=== PATIENT | male | born 1965 | race Caucasian/White ===

== ENCOUNTER 2022-09-28 10:57 | Inpatient (IN) ==
[2022-09-28] MEDS ORDERED: SODIUM CHLORIDE 0.9% 1000ML 1,000 ML IV ONE (11:19)
[2022-09-28] MEDS ORDERED: ONDANSETRON INJ 2 MG/ML 2 ML VIAL IV STA (11:19)
--- NOTE | 2022-09-28 11:57 | Emergency Department Note ---
Impression & Plan Abdominal pain, acute, right upper quadrant, Acute cholecystitis, Choledocholithiasis, Transaminitis, Serum total bilirubin elevated ED Provider Note HISTORY OF PRESENT ILLNESS: Patient is a 56-year-old male presenting with right upper quadrant abdominal pain, discolored urine and pruritus. Patient reports that he was trying to get an appointment with his primary care provider, but was referred to the emergency department instead. He reports that over the last week he has been having intermittent episodes of right upper quadrant abdominal pain. He has noted episodes in which his urine is so dark yellow it is almost brown. He reports that for the last few days he has been having diffuse itchiness and cannot stop scratching his skin. He reports nausea but no vomiting. Reports having diarrhea over the last few days. Reports he just does not feel like his normal self at this time. His not complaining of right upper quadrant pain at this time. Denies any history of abdominal surgeries. Denies any chest pain or shortness of breath. Denies any dysuria or hematuria. Denies any fevers ROS: as above PHYSICAL EXAM: Constitutional: Patient appears in no distress. HENT: Head: Normocephalic and atraumatic. Eyes: EOMI, PERRL Mouth/Throat: Mucous membranes moist. Neck: Trachea midline. Neck supple. Cardiovascular: RRR, No murmurs, rubs or gallops. Intact distal pulses. Pulmonary/Chest: No respiratory distress. Breath sounds clear and equal bilaterally. No wheezes or rales. Abdominal: Abdomen soft, no rebound or guarding. Right upper quadrant tenderness to palpation Musculoskeletal: No edema, tenderness or deformity noted. Skin: Warm and dry. No rash, erythema, pallor or cyanosis Psychiatric: Appropriate mood and affect for situation. Neurological: Alert and keenly responsive. CN II-XII grossly intact, moving all extremities equally and fully. MDM: - Vitals signs stable. - History obtained via patient. Patient presents with right upper quadrant abdominal pain, discolored urine and pruritus. Patient reports that he was refe rred to the ER by his PCP. He has been having intermittent episodes of right upper quadrant abdominal pain. He reports over the weekend he has had significantly dark urine that is almost brown in color. He reports for the last few days he had diffuse itchiness and cannot stop scratching his skin. Reports nausea but no vomiting. Has had diarrhea over the last few days. Denies any fevers at home. - Chronic conditions affecting care: GERD - Differential diagnoses include, but are not limited to: Biliary colic; cholangitis; cholecystitis; hepatitis; right lower lobe pneumonia; pulmonary embolism - Order placed for continuous cardiac monitoring. At this time, monitor showed rate of 70 bpm with normal sinus rhythm, per my interpretation. - External medical records reviewed. - Laboratory workup interpreted by myself showed normal WBC; normal lactate; slight hyponatremia (Na 134); elevated total bilirubin (6.4); transaminitis (AST 128; ALT 346); normal lipase - UA negative for infection. - CT abdomen/pelvis with IV contrast showed mild wall thickening of the gallbladder representing gallbladder contraction versus cholecystitis. Also noted to have prominence of the common bile duct with a radiodensity in the distal duct - MRCP showed cholelithiasis and choledocholithiasis with evidence of acute cholecystitis - Patient given IV zosyn, 4 mg IV zofran and 1L NS in ER. - Disucssed results with GI who recommended GI consult and plan for ERCP. - Discussion was had with social director about patient's case and need for admission - Hospitalist, Dr. Pagan, consulted for admission - [facility] ASSESSMENT AND PLAN: Diagnosis: RUQ abdominal pain; acute cholecystitis; choledocholithiasis; transaminitis; elevated total bilirubin Plan: admit Past Med/Surg History Medical History (Updated 09/28/22 @ 16:41 by Jocy Arzate MD) Adenomatous polyps hx GERD (gastroesophageal reflux disease) History of COVID-19 2019, fatigue>resolved. Hx of allergic rhinitis Right knee pain Surgical History History of arthroscopy of right knee Benjamin subtotal lateral meniscectomy, partial medial, chondroplasty History of colonoscopy History of esophagogastroduodenoscopy (EGD) History of foot surgery LEFT Family History Grandfather (Paternal) Prostate cancer Grandmother (Maternal) Diabetes Denies family history of Ovarian cancer Alzheimer disease Bipolar disorder Dementia Depression Heart disease Myocardial infarction Breast cancer Lung cancer COPD (chronic obstructive pulmonary disease) Colorectal cancer Hypertension Colonic polyp Stroke Asthma Social History Smoking Status: Never smoker Cigarettes Per Day: "just occasional"; Second Hand Exposure: No; Do You Dip or Chew Tobacco: Yes (advised); Hx Alcohol Use: Yes Alcohol type: beer Alcohol Intake Frequency: 2-3 x/Week Hx Substance Use: No Preferred Language: Citizen Of [place] Communication Ability: Effective Visual Impairment: No Limitations Hearing Ability: Normal Occupational Therapy Aide Required: No Beliefs That Will Affect Care: None marital status: Current Living Situation: Spouse Current Living Situation Comment: [employer] current occupational status: employed current occupation: INVENTORY ASSISTANT How many Children do You have: 1 Feels Safe at Home: Yes Childhood Exposure to Second-Hand Smoke: Yes Dental Care, Regularly: No Seatbelt Use: never Sunscreen Use: Yes (BEACH) Assistive Devices: Contacts Allergies Allergies Allergy/AdvReac Type Severity Reaction Status Date / Time No Known Allergies Allergy Verified 06/09/22 16:09 Home Meds Previous Rx's Medication Instructions Recorded azelastine 137 mcg (0.1 %) nasal 2 spray intranasal BID #90 mL 05/15/22 spray aerosol pantoprazole 40 mg tablet,delayed 40 mg PO QAM #90 tabs 05/15/22 release (Protonix) celecoxib 200 mg capsule (Celebrex) 200 mg PO DAILY #30 caps 06/09/22 mupirocin 2 % topical ointment 1 applic topical BID #22 grams 06/09/22 Results & Data (ED) Vital Signs Vital Signs - 24 hr 09/28/22 11:12 09/28/22 11:46 09/28/22 11:48 Temperature 36.6 C Temperature Source Temporal Artery Scan Pulse Rate 75 65 Pulse Rate [Apical] 69 Pulse Rhythm [Apical] Pulse Strength [Apical] Respiratory Rate 18 15 15 Respiratory Effort / Characteristics Non-Labored Spontaneous Respiratory Depth Normal Respiratory Pattern Regular Blood Pressure 158/113 H Blood Pressure [Left Arm] Blood Pressure Mean 128 Blood Pressure Mean [Left Arm] Blood Pressure Position [Left Arm] Pulse Oximetry 98 95 94 Oxygen Delivery Method Room Air Room Air Room Air Sepsis Recent Fever Within 48 Hours Yes Sepsis New/Unexplained Change in Mental Status No Sepsis Action Taken by Nursing No Action Required 09/28/22 12:41 09/28/22 13:25 09/28/22 15:16 Temperature 36.7 C Temperature Source Oral Pulse Rate 63 Pulse Rate [Apical] 66 62 Pulse Rhythm [Apical] Regular Pulse Strength [Apical] Normal Respiratory Rate 18 16 Respiratory Effort / Characteristics Non-Labored Spontaneous Respiratory Depth Normal Respiratory Pattern Regular Blood Pressure Blood Pressure [Left Arm] 139/87 Blood Pressure Mean Blood Pressure Mean [Left Arm] 104 Blood Pressure Position [Left Arm] Semi-fowlers Pulse Oximetry 96 94 Oxygen Delivery Method Room Air Room Air Sepsis Recent Fever Within 48 Hours Sepsis New/Unexplained Change in Mental Status Sepsis Action Taken by Nursing 09/28/22 16:37 Temperature Temperature Source Pulse Rate 65 Pulse Rate [Apical] Pulse Rhythm [Apical] Pulse Strength [Apical] Respiratory Rate Respiratory Effort / Characteristics Respiratory Depth Respiratory Pattern Blood Pressure Blood Pressure [Left Arm] Blood Pressure Mean Blood Pressure Mean [Left Arm] Blood Pressure Position [Left Arm] Pulse Oximetry Oxygen Delivery Method Sepsis Recent Fever Within 48 Hours Sepsis New/Unexplained Change in Mental Status Sepsis Action Taken by Nursing Laboratory Data 09/28/22 11:44 09/28/22 11:44 Lab Results 09/28/22 09/28/22 09/28/22 Range/Units 11:44 11:44 12:19 WBC 7.31 (4.8-10.8) K/ul RBC 5.28 (4.70-6.10) M/uL Hgb 16.3 (14.0-18.0) g/dl Hct 45.4 (42.0-52.0) % MCV 86.0 (80.0-100.0) fL MCH 30.9 (25.0-34.0) pg MCHC 35.9 (32.0-36.0) g/dL RDW Std Deviation 43.0 (36.4-46.3) fL RDW Coeff of Mayela 13.8 (11.5-14.5) % Plt Count 238 (130-400) K/uL MPV 9.0 L (9.4-12.4) fL Immature Gran % (Auto) 1.0 % Neut % (Auto) 64.1 % Lymph % (Auto) 19.6 % Emanuel % (Auto) 7.8 % Eos % (Auto) 6.3 % Baso % (Auto) 1.2 % Neut # (Auto) 4.69 (1.40-6.50) K/uL Lymph # (Auto) 1.43 (1.2-3.4) K/uL Emanuel # (Auto) 0.57 (0.11-0.59) K/uL Eos # (Auto) 0.46 (0-0.50) K/uL Baso # (Auto) 0.09 (0-0.2) K/uL Immature Gran # (Auto) 0.07 (0.01-0.20) K/uL Sodium 134 L (136-145) mmol/L Potassium 4.2 (3.5-5.1) mmol/L Chloride 102 (98-107) mmol/L Carbon Dioxide 23 (21-32) mmol/L Anion Gap 9 (3-11) BUN 11 (6-23) mg/dl Creatinine 1.05 (0.6-1.4) mg/dl Est Cr Clr Drug Dosing 82.1 ml/min Est GFR ( Amer) 92.2 ml/min Est GFR (Non-Af Amer) 79.5 ml/min BUN/Creatinine Ratio 10.5 (10-20) Glucose 113 H (70-99(Fasting)) mg/dl Lactate 1.1 (0.4-2.0) mmol/L Calcium 9.6 (8.6-10.3) mg/dl Total Bilirubin 6.4 H (0.2-1.0) mg/dl AST 128 H (13-39) U/L ALT 346 H (7-52) U/L Alkaline Phosphatase 289 H (34-104) U/L Total Protein 7.6 (6.0-8.3) gm/dl Albumin 4.4 (3.4-5.0) gm/dl Globulin 3.2 (2.5-4.0) gm/dl Albumin/Globulin Ratio 1.4 (0.9-2) Lipase 33 (11-82) U/L Urine Color Urine Appearance (Clear) Urine pH (4.5-7.5) Ur Specific Bude (1.000-1.030) Urine Protein (Negative) Urine Glucose (UA) (Negative) Urine Ketones (Negative) Urine Blood (Negative) Urine Nitrite (Negative) Urine Bilirubin (Negative) Urine Urobilinogen (Negative) Ur Leukocyte Esterase (Negative) 09/28/22 Range/Units Unknown WBC (4.8-10.8) K/ul RBC (4.70-6.10) M/uL Hgb (14.0-18.0) g/dl Hct (42.0-52.0) % MCV (80.0-100.0) fL MCH (25.0-34.0) pg MCHC (32.0-36.0) g/dL RDW Std Deviation (36.4-46.3) fL RDW Coeff of Mayela (11.5-14.5) % Plt Count (130-400) K/uL MPV (9.4-12.4) fL Immature Gran % (Auto) % Neut % (Auto) % Lymph % (Auto) % Emanuel % (Auto) % Eos % (Auto) % Baso % (Auto) % Neut # (Auto) (1.40-6.50) K/uL Lymph # (Auto) (1.2-3.4) K/uL Emanuel # (Auto) (0.11-0.59) K/uL Eos # (Auto) (0-0.50) K/uL Baso # (Auto) (0-0.2) K/uL Immature Gran # (Auto) (0.01-0.20) K/uL Sodium (136-145) mmol/L Potassium (3.5-5.1) mmol/L Chloride (98-107) mmol/L Carbon Dioxide (21-32) mmol/L Anion Gap (3-11) BUN (6-23) mg/dl Creatinine (0.6-1.4) mg/dl Est Cr Clr Drug Dosing ml/min Est GFR ( Amer) ml/min Est GFR (Non-Af Amer) ml/min BUN/Creatinine Ratio (10-20) Glucose (70-99(Fasting)) mg/dl Lactate (0.4-2.0) mmol/L Calcium (8.6-10.3) mg/dl Total Bilirubin (0.2-1.0) mg/dl AST (13-39) U/L ALT (7-52) U/L Alkaline Phosphatase (34-104) U/L Total Protein (6.0-8.3) gm/dl Albumin (3.4-5.0) gm/dl Globulin (2.5-4.0) gm/dl Albumin/Globulin Ratio (0.9-2) Lipase (11-82) U/L Urine Color Dark Yellow Urine Appearance Clear (Clear) Urine pH 5.5 (4.5-7.5) Ur Specific Bude 1.008 (1.000-1.030) Urine Protein Negative (Negative) Urine Glucose (UA) Negative (Negative) Urine Ketones Negative (Negative) Urine Blood Negative (Negative) Urine Nitrite Negative (Negative) Urine Bilirubin 1+ H (Negative) Urine Urobilinogen Negative (Negative) Ur Leukocyte Esterase Negative (Negative) Administered Medications Discontinued Medications Sodium Chloride (Nss 1000ml) 1,000 mls @ 999 mls/hr IV .Q1H1M ONE Stop: 09/28/22 12:19 Last Infusion: 09/28/22 13:25 Dose: 0 mls/hr Documented By: Admin: 09/28/22 11:46 Dose: 999 mls/hr Documented By: KV Piperacillin Sod/Tazobactam Sod (Zosyn) 4.5 gm in 120 mls @ 240 mls/hr IV NOW ONE Stop: 09/28/22 13:47 Last Infusion: 09/28/22 15:53 Dose: 0 mls/hr Documented By: Admin: 09/28/22 13:25 Dose: 240 mls/hr Documented By: KV Ioversol (Optiray 350 500ml) 90 ml IV ONCE ONE Stop: 09/28/22 13:00 Last Admin: 09/28/22 12:59 Dose: 90 ml Documented By: KSF Ondansetron HCl (Ondansetron Inj 2 Mg/Ml 2 Ml Vial) 4 mg IV NOW STA Stop: 09/28/22 11:20 Last Admin: 09/28/22 11:46 Dose: 4 mg Documented By: KV Imaging Data Radiologist's Impression: Abdomen/Pelvis CT 09/28/22 12:25 CT abd pelvis IV con only CLINICAL HISTORY: RUQ abdominal pain; jaundice TECHNIQUE: Helical axial images of the abdomen and pelvis were obtained and displayed. Automated dose lowering techniques and/or adjustment according to patient size were utilized for this exam. This exam was performed with intr avenous contrast. CT DOSE: 1510.87 mGy.cm COMPARISON: None available at the time of this dictation. FINDINGS: Lower chest: Bibasilar atelectasis versus scarring is seen. Liver: Unremarkable. No focal lesions are seen. Gallbladder and biliary tree: The gallbladder is diminutive in size and a layering stone is seen. Gallbladder wall measures up to 0.3 cm in diameter. No significant pericholecystic fluid is noted. Intra and extrahepatic bile biliary ductal dilation is seen. A stone is noted in the distal common bile duct. Pancreas: Unremarkable, no focal lesions. Spleen: Unremarkable. Adrenals: Unremarkable. Kidneys and ureters: Unremarkable. Bladder: Limited evaluation due to underdistention. Reproductive organs: Unremarkable. Bowel: Numerous diverticula are seen in the large bowel. The appendix is unremarkable. Lymph nodes Retroperitoneal: Subcentimeter lymph nodes are noted. Pelvic: Unremarkable. Mesenteric: Unremarkable. Peritoneum: Normal. Vessels: Unremarkable. Abdominal wall: Unremarkable. Bones: Degenerative changes in the visualized spine. IMPRESSION: Diminutive gallbladder with mild wall thickening may represent gallbladder contraction but can also be seen in chronic cholecystitis. There is prominence of the common bile duct with a radiodensity in the distal duct. Choledocholithiasis cannot be excluded. ACT 112: Negative or not required by law. Electronically signed by: Efraín Cruz M.D. 09/28/2022 1:14 PM Cholangiopancreatography MRI 09/28/22 13:50 MRCP CLINICAL HISTORY: Right upper quadrant abdominal pain. Nausea and vomiting. COMPARISON STUDY: Abdominal CT dated 09/28/2022. TECHNIQUE: Abdominal MRCP is performed utilizing various T2-weighted sequences in the axial and coronal planes. IV contrast was not administered for this examination. Diffusion-weighted imaging was utilized. 3-D reformats are created and assessed. FINDINGS: The gallbladder is partially distended, and there are several gallstones. The gallbladder wall is thickened with pericholecystic inflammation. Findings are consistent with acute cholecystitis. The common bile duct is dilated, measuring up to 8mm diameter. There is infiltration around the proximal common bile duct a nd intrahepatic hilum. There are at least 2 gallstones within the mid to distal common bile duct measuring up to 6 mm. There may also be a tiny stone at the ampulla. There is mild intrahepatic biliary ductal dilatation. The pancreatic duct is normal in caliber. The unenhanced liver, spleen, adrenal glands, and pancreas are grossly unremarkable. The kidneys are normal in size and without hydronephrosis. The abdominal aorta is normal in course and caliber. There is no evidence of bowel obstruction. No abdominal ascites is seen. There is no pleural effusion. There is no evidence of destructive bony lesion. IMPRESSION: 1. Cholelithiasis and choledocholithiasis with evidence of acute cholecystitis. 2. There is mild intrahepatic biliary ductal dilatation. Inflammation around the proximal common bile duct likely represents cholangitis. 3. Additional findings as above. Electronically signed by: Tee Emerson M.D. 09/28/2022 3:18 PM Discharge Plan Visit Data Chief Complaint: Urinary Symptoms Stated Complaint: BROWN URINE,NAUSEA,ITCHY,DIARRHEA,ABD PAIN ED Provider: Jocy Arzate Discharge Problem: Abdominal pain, acute, right upper quadrant, Acute cholecystitis, Choledoc holithiasis, Transaminitis, Serum total bilirubin elevated Forms Stand Alone Forms: [facility] Prescriptions Prescriptions: No Action pantoprazole [Protonix] 40 mg tablet,delayed release (DR/EC) 40 mg PO QAM Qty: 90 3RF azelastine 137 mcg (0.1 %) aerosol,spray 2 spray intranasal BID Qty: 90 5RF Rx Instructions: administer into each nostril mupirocin 2 % ointment 1 applic topical BID Qty: 22 5RF celecoxib [Celebrex] 200 mg capsule 200 mg PO DAILY Qty: 30 0RF Referrals Referrals: Montana Edmonds MD [Primary Care Provider] -
[2022-09-28 12:10] LABS: Basophils # (auto) 0.09 K/uL (0-0.2); Basophils % (auto) 1.2 %; Eosinophils # (auto) 0.46 K/uL (0-0.50); Eosinophils % (auto) 6.3 %; Hematocrit (blood only) 45.4 % (42.0-52.0); Hemoglobin 16.3 g/dl (14.0-18.0); Immature Granulocytes # (auto) 0.07 K/uL (0.01-0.20); Lymphocytes # (auto) 1.43 K/uL (1.2-3.4); Lymphocytes % (auto) 19.6 %; Mean Corpuscular Hemoglobin 30.9 pg (25.0-34.0); Mean Corpuscular Hgb Conc 35.9 g/dL (32.0-36.0); Monocytes # (auto) 0.57 K/uL (0.11-0.59); Monocytes % (auto) 7.8 %; Neutrophils # (auto) 4.69 K/uL (1.40-6.50); Neutrophils % (auto) 64.1 %; Platelet Count 238 K/uL (130-400); RDW Coefficient of Variation 13.8 % (11.5-14.5); Red Blood Count 5.28 M/uL (4.70-6.10); White Blood Count 7.31 K/ul (4.8-10.8)
[2022-09-28 12:24] LABS: Albumin Globulin Ratio 1.4 (0.9-2); Albumin Level 4.4 gm/dl (3.4-5.0); BUN Creatinine Ratio 10.5 (10-20); Bilirubin,Total 6.4 mg/dl (0.2-1.0); Calcium 9.6 mg/dl (8.6-10.3); Creatinine Clr Calc Pharmacy 82.1 ml/min; Est GFR (African American) 92.2 ml/min; Est GFR (Non-African American) 79.5 ml/min; Globulin 3.2 gm/dl (2.5-4.0); Potassium 4.2 mmol/L (3.5-5.1); Total Protein 7.6 gm/dl (6.0-8.3)
[2022-09-28] MEDS ORDERED: OPTIRAY 350 500ml IV ONE (12:59)
--- NOTE | 2022-09-28 13:15 | CT Scan Report ---
CT abd pelvis IV con only CLINICAL HISTORY: RUQ abdominal pain; jaundice TECHNIQUE: Helical axial images of the abdomen and pelvis were obtained and displayed. Automated dose lowering techniques and/or adjustment according to patient size were utilized for this exam. This e xam was performed with intravenous contrast. CT DOSE: 1510.87 mGy.cm COMPARISON: None available at the time of this dictation. FINDINGS: Lower chest: Bibasilar atelectasis versus scarring is seen. Liver: Unremarkable. No focal lesions are seen. Gallbladder and biliary tree: The gallbladder is diminutive in size and a layering stone is seen. Gal lbladder wall measures up to 0.3 cm in diameter. No significant pericholecystic fluid is noted. Intra and extrahepatic bile biliary ductal dilation is seen. A stone is noted in the distal common bile du ct. Pancreas: Unremarkable, no focal lesions. Spleen: Unremarkable. Adrenals: Unremarkable. Kidneys and ureters: Unremarkable. Bladder: Limited evaluation due to underdistention. Reproductive organs: Unremarkable. Bowel: Numerous diverticula are seen in the large bowel. The appendix is unremarkable. Lymph nodes Retroperitoneal: Subcentimeter lymph nodes are noted. Pelvic: Unremarkable. Mesenteric: Unremarkable. Peritoneum: Normal. Vessels: Unremarkable. Abdominal wall: Unremarkable. Bones: Degenerative changes in the visualized spine. IMPRESSION: Diminutive gallbladder with mild wall thickening may represent gallbladder contraction but can also b e seen in chronic cholecystitis. There is prominence of the common bile duct with a radiodensity in t he distal duct. Choledocholithiasis cannot be excluded. ACT 112: Negative or not required by law. Electronically signed by: Efraín Cruz M.D. 09/28/2022 1:14 PM
[2022-09-28] MEDS ORDERED: PIPERACILLIN/TAZOBACTAM 4.5 GM/120 ML BAG IV ONE (13:18)
[2022-09-28 13:43] LABS: Appearance Urine Clear (Clear); Blood Urine Negative (Negative); Color Urine Dark Yellow; Glucose Urine UA Negative (Negative); Ketones Urine Negative (Negative); Leukocyte Esterase Urine Negative (Negative); Nitrite Urine Negative (Negative); Protein Urine Negative (Negative); Specific Gravity Urine 1.008 (1.000-1.030); Urobilinogen Urine Negative (Negative); pH Urine 5.5 (4.5-7.5)
[2022-09-28 13:47] LABS: Bilirubin Urine 1+ (Negative)
--- NOTE | 2022-09-28 15:19 | Magnetic Resonance Report ---
MRCP CLINICAL HISTORY: Right upper quadrant abdominal pain. Nausea and vomiting. COMPARISON STUDY: Abdominal CT dated 09/28/2022. TECHNIQUE: Abdominal MRCP is performed utilizing various T2-weighted sequences in the axial and coron al planes. IV contrast was not administered for this examination. Diffusion-weighted imaging was util ized. 3-D reformats are created and assessed. FINDINGS: The gallbladder is partially distended, and there are several gallstones. The gallbladder wall is thi ckened with pericholecystic inflammation. Findings are consistent with acute cholecystitis. The commo n bile duct is dilated, measuring up to 8mm diameter. There is infiltration around the proximal commo n bile duct and intrahepatic hilum. There are at least 2 gallstones within the mid to distal common b ile duct measuring up to 6 mm. There may also be a tiny stone at the ampulla. There is mild intrahepa tic biliary ductal dilatation. The pancreatic duct is normal in caliber. The unenhanced liver, spleen, adrenal glands, and pancreas are grossly unremarkable. The kidneys are normal in size and without hydronephrosis. The abdominal aorta is normal in course and caliber. There is no evidence of bowel obstruction. No abdominal ascites is seen. There is no pleural effusion. The re is no evidence of destructive bony lesion. IMPRESSION: 1. Cholelithiasis and choledocholithiasis with evidence of acute cholecystitis. 2. There is mild intrahepatic biliary ductal dilatation. Inflammation around the proximal common bile duct likely represents cholangitis. 3. Additional findings as above. Electronically signed by: Tee Emerson M.D. 09/28/2022 3:18 PM
--- NOTE | 2022-09-28 16:35 | History & Physical Report ---
Date of Service September 28, 2022 Assessment & Plan (1) Choledocholithiasis with acute cholecystitis with obstruction: Plan: Lipase WNL NPO, LR @ 125ml/hr Switch antibiotics to ceftriaxone + metronidazole Consult gastroenterology for ERCP Consult general surgery for cholecystectomy (2) Gastroesophageal reflux disease without esophagitis: Plan: Continue pantoprazole 40mg IV/PO daily Plan VTE Prophylaxis - Lovenox 40mg SQ daily Diet - NPO Disposition - admit to med/surg Admission and Anticipated Discharge Date Admission Date: September 28, 2022 History of Present Illness Chief Complaint: Dark urine, pruritis, abdominal pain, nausea, chills Primary Care Provider: Montana Edmonds MD Tod Estrella is a 56 year old male who presents to the ER with 1 week of dark urine, right upper quadrant pain, nausea, pruritus and chills. He reports intermittent right upper quadrant abdominal pain since August which he initially put down to his reflux due to association with eating. On occasion however it could last for an entire day. Not getting more frequent or severe but also not getting better. Taking intermittent Aleve for this which would help. Then for the last week he has noticed dark urine and reduced urination. Last 5 day his skin has become itchy all over. Associated nausea but no vomiting. No change in bowel movements. This morning he started having chills but no objective fever. Today he called his PCP office on insistence from his who advised him to come to the ER. He drinks alcohol usually on Fridays and Saturdays 6-8 beers at a time. No alcohol since Wednesday as he had 3 beers then which made him feel sick. Allergies Allergy/AdvReac Type Severity Reaction Status Date / Time No Known Allergies Allergy Verified 06/09/22 16:09 Home Medications Medication Instructions Recorded Confirmed Type azelastine 137 mcg (0.1 %) nasal 2 spray intranasal BID #90 mL 05/15/22 09/28/22 Rx spray aerosol pantoprazole 40 mg tablet,delayed 40 mg PO QAM #90 tabs 05/15/22 09/28/22 Rx release (Protonix) mupirocin 2 % topical ointment 1 applic topical BID PRN Other 09/28/22 09/28/22 History Past Med/Surg History Medical History (Updated 09/28/22 @ 16:41 by Jocy Arzate MD) Adenomatous polyps hx GERD (gastroesophageal reflux disease) History of COVID-19 2020, fatigue>resolved. Hx of allergic rhinitis Right knee pain Surgical History History of arthroscopy of right knee Benjamin subtotal lateral meniscectomy, partial medial, chondroplasty History of colonoscopy History of esophagogastroduodenoscopy (EGD) History of foot surgery LEFT Family History Grandfather (Paternal) Prostate cancer Grandmother (Maternal) Diabetes Denies family history of Ovarian cancer Alzheimer disease Bipolar disorder Dementia Depression Heart disease Myocardial infarction Breast cancer Lung cancer COPD (chronic obstructive pulmonary disease) Colorectal cancer Hypertension Colonic polyp Stroke Asthma Social History Smoking Status: Never smoker Cigarettes Per Day: "just occasional"; Second Hand Exposure: No; Do You Dip or Chew Tobacco: Yes (1 can a day); Hx Alcohol Use: Yes Alcohol type: beer Alcohol Intake Frequency: 2-3 x/Week Hx Substance Use: No Preferred Language: Belarusian Communication Ability: Effective Visual Impairment: No Limitations Hearing Ability: Normal Bank Guard Required: No Beliefs That Will Affect Care: None marital status: Current Living Situation: Spouse Current Living Situation Comment: [facility] [employer] [facility] current occupational status: employed current occupation: A[employer]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 How many Children do You have: 1 Other Information That Helps Us Care for You: No Feels Safe at Home: Yes Safety Concerns: Feels Safe At This Time Childhood Exposure to Second-Hand Smoke: Yes Dental Care, Regularly: No Seatbelt Use: never Sunscreen Use: Yes (BEACH) Assistive Devices: None Review of Systems Review of Systems: All systems reviewed & are unremarkable except as noted in HPI & below Physical Exam Constitutional: WD/WN, vitals as above Eyes: sclerae not anicteric and normal pupil size ENMT: external ear and nose normal, oropharynx normal Neck: trachea midline, no thyromegaly Respiratory: normal respiratory effort, lungs clear to auscultation Cardiovascular: RRR, no murmur, no edema Gastrointestinal (Abdomen): Inspection/Auscultation: abdomen normal to inspection; abdomen not distended Percussion/Palpation: + abdomen tender (RUQ) and abdomen soft; no guarding and abdomen not rigid Musculoskeletal: no cyanosis or clubbing, extremities motor strength 5/5 Skin: + jaundice Neurologic: moves all extremities and awake; not confused Psychiatric: A+Ox3, euthymic affect Results & Data Results & Data Vital Signs (Past 12 Hours) Vital Signs Temp Pulse Pulse Resp BP BP Pulse Ox 09/28/22 15:16 36.7 C 62 16 139/87 94 09/28/22 13:25 66 18 96 09/28/22 12:41 63 09/28/22 11:48 69 15 94 09/28/22 11:46 65 15 95 09/28/22 11:12 36.6 C 75 18 158/113 H 98 O2 Del Method 09/28/22 15:16 Room Air 09/28/22 13:25 Room Air 09/28/22 12:41 09/28/22 11:48 Room Air 09/28/22 11:46 Room Air 09/28/22 11:12 Room Air Laboratory Results Abnormal lab results 09/28/22 09/28/22 09/28/22 Range/Units 11:44 11:44 Unknown MPV 9.0 L (9.4-12.4) fL Sodium 134 L (136-145) mmol/L Glucose 113 H (70-99(Fasting)) mg/dl Total Bilirubin 6.4 H (0.2-1.0) mg/dl AST 128 H (13-39) U/L ALT 346 H (7-52) U/L Alkaline Phosphatase 289 H (34-104) U/L Urine Bilirubin 1+ H (Negative) Diagnostic Findings CT abd pelvis IV con only CLINICAL HISTORY: RUQ abdominal pain; jaundice TECHNIQUE: Helical axial images of the abdomen and pelvis were obtained and displayed. Automated dose lowering techniques and/or adjustment according to patient size were utilized for this exam. This exam was performed with in travenous contrast. CT DOSE: 1510.87 mGy.cm COMPARISON: None available at the time of this dictation. FINDINGS: Lower chest: Bibasilar atelectasis versus scarring is seen. Liver: Unremarkable. No focal lesions are seen. Gallbladder and biliary tree: The gallbladder is diminutive in size and a layering stone is seen. Gallbladder wall measures up to 0.3 cm in diameter. No significant pericholecystic fluid is noted. Intra and extrahepatic bile biliary ductal dilation is seen. A stone is noted in the distal common bile duct. Pancreas: Unremarkable, no focal lesions. Spleen: Unremarkable. Adrenals: Unremarkable. Kidneys and ureters: Unremarkable. Bladder: Limited evaluation due to underdistention. Reproductive organs: Unremarkable. Bowel: Numerous diverticula are seen in the large bowel. The appendix is unremarkable. Lymph nodes Retroperitoneal: Subcentimeter lymph nodes are noted. Pelvic: Unremarkable. Mesenteric: Unremarkable. Peritoneum: Normal. Vessels: Unremarkable. Abdominal wall: Unremarkable. Bones: Degenerative changes in the visualized spine. IMPRESSION: Diminutive gallbladder with mild wall thickening may represent gallbladder contraction but can also be seen in chronic cholecystitis. There is prominence of the common bile duct with a radiodensity in the distal duct. Choledocholithiasis cannot be excluded. MRCP CLINICAL HISTORY: Right upper quadrant abdominal pain. Nausea and vomiting. COMPARISON STUDY: Abdominal CT dated 09/28/2022. TECHNIQUE: Abdominal MRCP is performed utilizing various T2-weighted sequences in the axial and coronal planes. IV contrast was not administered for this examination. Diffusion-weighted imaging was utilized. 3-D reformats are created and assessed. FINDINGS: The gallbladder is partially distended, and there are several gallstones. The gallbladder wall is thickened with pericholecystic inflammation. Findings are consistent with acute cholecystitis. The common bile duct is dilated, measuring up to 8mm diameter. There is infiltration around the proximal common bile duct and intrahepatic hilum. There are at least 2 gallstones within the mid to distal common bile duct measuring up to 6 mm. There may also be a tiny stone at the ampulla. There is mild intrahepatic biliary ductal dilatation. The pancreatic duct is normal in caliber. The unenhanced liver, spleen, adrenal glands, and pancreas are grossly unremarkable. The kidneys are normal in size and without hydronephrosis. The abdominal aorta is normal in course and caliber. There is no evidence of bowel obstruction. No abdominal ascites is seen. There is no pleural effusion. There is no evidence of destructive bony lesion. IMPRESSION: 1. Cholelithiasis and choledocholithiasis with evidence of acute cholecystitis. 2. There is mild intrahepatic biliary ductal dilatation. Inflammation around the proximal common bile duct likely represents cholangitis. 3. Additional findings as above. Medications Administered ER Medications Given: Normal saline 1L bolus Ondansetron 4mg IV Zosyn 4.5g IV Code Status & VTE Plan Code Status Full VTE Prophylaxis Plan VTE Prophylaxis will be ordered: Yes PG Care Time/CCT Total # of Minutes Spent Total Time Spent with Patient: Total time spent is greater than 50% in coordination of care (as documented) at patient's floor/unit and/or counseling patient: Coding Level of Care Code 14929 INT INP/OBS CARE MIN Diagnoses Choledocholithiasis with acute cholecystitis with obstruction K80.43 Gastroesophageal reflux disease without esophagitis K21.9
[2022-09-28] MEDS: LACTATED RINGER'S 1,000 ML IV SCH ×2 (16:51→23:35)
[2022-09-28] MEDS ORDERED: ONDANSETRON INJ 2 MG/ML 2 ML VIAL IV PRN (18:05)
[2022-09-28] MEDS: metroNIDAZOLE 500 MG/100 ML BAG IV SCH (19:10)
[2022-09-28] MEDS: cefTRIAXone SODIUM 2,000 MG in DEXTROSE 5% 50 ML IV SCH (19:10)
[2022-09-28] MEDS ORDERED: MoRPHine SULFATE 4 MG/ML 1 ML CARP\\VIAL IV PRN (20:29)
[2022-09-28] MEDS ORDERED: MoRPHine SULFATE 2 MG/ML CARP IV PRN (20:29)
[2022-09-28] MEDS: PANTOprazole 40 MG in SYRINGE 0 ML IV SCH (20:45)
[2022-09-28] MEDS: ENOXAPARIN INJ 40 MG/0.4 ML SYR SQ SCH (20:45)
[2022-09-29] MEDS: metroNIDAZOLE 500 MG/100 ML BAG IV SCH ×3 (01:58→18:27)
[2022-09-29] MEDS: LACTATED RINGER'S 1,000 ML IV SCH ×2 (07:20→18:27)
--- NOTE | 2022-09-29 07:23 | Hospitalist Progress Note ---
Date of Service September 29, 2022 Assessment & Plan (1) Choledocholithiasis with acute cholecystitis with obstruction: (2) Transaminitis: (3) Gastroesophageal reflux disease without esophagitis: Plan #Acute cholecystitis with choledocholithiasis and obstruction #Transaminitis - cholangiopanc MRI 09/28 showed evidence of acute cholecystitis with stones in GB + CBD, cholangitis likely - Lipase wnl, WBC wnl - Bili 6.4, AST 128, ALT 346 - pt remains afebrile - continue ABs ceftriaxone + metronidazole - pt to have ERCP today - continue pt NPO - will hold lovenox midnight prior to surgery when surgery scheduled #GERD - Continue pantoprazole 40mg IV daily until procedure over, once off NPO will switch to po VTE Prophylaxis - Lovenox 40mg SQ daily Diet - NPO Disposition - med/surg Admission and Anticipated Discharge Date Admission Date: September 28, 2022 Supervising Physician Co-Signing Physician Notes Attending attestation Pt seen and examined in concert with Dr. Damon. In agreement with the documented findings as noted in the resident documentation with any exceptions or additions as noted here. Resting in bed with minimal RUQ abdominal pain complaint at present, no n/v reported. On examination, S1/S2 nl RRR no MCG. CTAB. Abd NT/ND BS+ve Acute cholecystitis w/ choledocolithaisis and transaminitis - trend CMP, CBC daily. Continue IV abx and monitor closely. NPO P MN for procedure tm. Else see resident documentation as noted. Subjective Pt is a 56 yo male with a past medical history of GERD who presents to the hospital on 09/28/2022 for acute cholecystitis in the setting of cholelithiasis and choledocholithiasis. Pt seen this morning before his ERCP. Pt states he is feeling okay today, just hungry since he is NPO with plan for ERCP this morning. He states that he has had intermittent episodes of RUQ with eating fatty meals for about 25 years now and always thought it was his GERD. He states that he is still itchy all over but that his urine seemed a bit less dark yesterday, but is still not yet no rmal. Otherwise, he is doing well at this time, just waiting for ERCP and to talk to general surgery, eager to get the procedures done so he can eat again. Review of Systems Review of Systems: Constitutional: denies fever, chills, HEENT: denies congestion, sore throat Cardio: denies chest pain, palpitations Resp: denies shortness of breath, cough GI: denies abdominal pain at rest, nausea, vomiting, constipation, diarrhea : denies pain with urination, change in urinary frequency, urine still dark Neuro: denies new numbness, tingling, weakness Physical Exam Physical Exam: General:Alert and oriented, no acute distress, HEENT: Normocephalic, moist oral mucosa, no scleral icterus Cardio: Regular rate and rhythm, no murmur, Resp:Lungs clear to auscultation b/l, no wheezes or rhonchi, GI: Soft, nondistended, bowel sounds active, RUQ pain elicited on palpation Skin: Warm, pink, dry, not jaundice Psych: Mood-affect congruence. Results & Data Results & Data Vital Signs (Past 12 Hours) Vital Signs Temp Pulse Resp BP Pulse Ox O2 Del Method 09/28/22 23:30 Room Air 09/28/22 23:09 36.6 C 63 15 133/82 95 Room Air Resident Activity Tracking Resident Involvement: Resident Care Provided Care Provided: Adult Hospital Medicine
[2022-09-29 07:26] LABS: Basophils # (auto) 0.07 K/uL (0-0.2); Basophils % (auto) 1.4 %; Eosinophils % (auto) 8.1 %; Hematocrit (blood only) 42.7 % (42.0-52.0); Immature Granulocytes # (auto) 0.07 K/uL (0.01-0.20); Immature Granulocytes % (auto) 1.4 %; Lymphocytes # (auto) 0.89 K/uL (1.2-3.4); Lymphocytes % (auto) 17.9 %; Mean Corpuscular Hemoglobin 30.2 pg (25.0-34.0); Mean Corpuscular Hgb Conc 35.1 g/dL (32.0-36.0); Mean Corpuscular Volume 86.1 fL (80.0-100.0); Mean Platelet Volume 8.8 fL (9.4-12.4); Monocytes # (auto) 0.46 K/uL (0.11-0.59); Monocytes % (auto) 9.3 %; Neutrophils # (auto) 3.07 K/uL (1.40-6.50); Neutrophils % (auto) 61.9 %; Platelet Count 216 K/uL (130-400); RDW Coefficient of Variation 13.8 % (11.5-14.5); RDW Standard Deviation 43.2 fL (36.4-46.3); Red Blood Count 4.96 M/uL (4.70-6.10); White Blood Count 4.96 K/ul (4.8-10.8)
[2022-09-29 07:49] LABS: INR 0.9 (0.9-1.1); Prothrombin Time 10.1 Seconds (9.0-12.0)
[2022-09-29 07:51] LABS: Albumin Level 3.7 gm/dl (3.4-5.0); BUN Creatinine Ratio 8.9 (10-20); Bilirubin Direct 3.1 mg/dl (0-0.2); Bilirubin,Total 5.6 mg/dl (0.2-1.0); Creatinine Clr Calc Pharmacy 98.6 ml/min; Est GFR (African American) 96.6 ml/min; Est GFR (Non-African American) 83.3 ml/min; Total Protein 6.5 gm/dl (6.0-8.3)
--- NOTE | 2022-09-29 08:45 | Anesthesiology Consultation ---
Date of Service September 29, 2022 Assessment & Plan Chart Review Chart Review: Acceptable Risk for Surgery and Patient NOT seen in Pre Admission Testing History Surgery Operation Date: 09/29/22 08:20 Proposed Procedures p Endoscopic Retrograde Cholangiopancreato - Kendrick Genao DO Height/Weight Height: 5 ft 10 in Weight: 101.3 kg Allergies Allergy/AdvReac Type Severity Reaction Status Date / Time No Known Allergies Allergy Verified 06/09/22 16:09 Medications Home Medications Medication Instructions Recorded Confirmed Last Taken azelastine 137 mcg (0.1 %) nasal 2 spray intranasal BID #90 mL 05/15/22 09/28/22 09/28/22 spray aerosol pantoprazole 40 mg tablet,delayed 40 mg PO QAM #90 tabs 05/15/22 09/28/22 Unknown release (Protonix) mupirocin 2 % topical ointment 1 applic topical BID PRN Other 09/28/22 09/28/22 Unknown Active Medications Generic Name Dose Route Start Last Admin Trade Name Freq PRN Reason Stop Dose Admin Enoxaparin Sodium 40 mg 09/28/22 21:00 09/28/22 20:45 Enoxaparin Inj 40 Mg/0.4 Ml Syr SQ 10/28/22 20:59 40 mg QPM MICHAEL Administration Lactated Ringer's 1,000 mls @ 125 mls/hr 09/28/22 16:30 09/29/22 07:20 Lr IV 10/28/22 16:29 125 mls/hr .Q8H MICHAEL Administration Ceftriaxone Sodium 2,000 mg/ 70 mls @ 100 mls/hr 09/28/22 18:15 09/28/22 19:57 Dextrose IV 10/08/22 18:14 Infused Q24H MICHAEL Infusion Protocol Metronidazole 500 mg in 100 mls @ 100 mls/hr 09/28/22 18:15 09/29/22 03:00 Flagyl IV 10/08/22 18:14 Infused Q8H MICHAEL Infusion Protocol Pantoprazole Sodium 40 mg/ 10 mls @ 5 mls/min 09/28/22 20:45 09/28/22 20:45 Syringe IV 10/28/22 20:44 5 mls/min DAILY@1100 MICHAEL Administration Past Medical History Medical History Adenomatous polyps hx GERD (gastroesophageal reflux disease) History of COVID-19 2020, fatigue>resolved. Hx of allergic rhinitis Right knee pain Past Family History Family History Grandfather (Paternal) , age 74 Prostate cancer Grandmother (Maternal) Diabetes Denies family history of Ovarian cancer Alzheimer disease Bipolar disorder Dementia Depression Heart disease Myocardial infarction Breast cancer Lung cancer COPD (chronic obstructive pulmonary disease) Colorectal cancer Hypertension Colonic polyp Stroke Asthma Past Surgical History Surgical History History of arthroscopy of right knee Benjamin subtotal lateral meniscectomy, partial medial, chondroplasty History of colonoscopy History of esophagogastroduodenoscopy (EGD) History of foot surgery LEFT Social History Smoking Status: Never smoker tobacco type: smokeless tobacco Smoking cigarettes per day: "just occasional" Do You Dip or Chew Tobacco: Yes (1 can a day) Hx Alcohol Use: Yes Alcohol type: beer alcohol intake frequency: a few times a week Hx Substance Use: No substance use type: does not use Physical Exam Vital Signs Last Vital Signs Temp 36.6 C 09/29/22 07:58 Pulse 77 09/29/22 07:58 Resp 18 09/29/22 07:58 BP 160/86 H 09/29/22 07:58 Pulse Ox 92 09/29/22 07:58 O2 Del Method Room Air 09/29/22 07:58 Testing Laboratory Results 09/29/22 06:37 09/29/22 06:37 PT 10.1 Seconds (9.0-12.0) 09/29/22 06:37 INR 0.9 (0.9-1.1) 09/29/22 06:37 Urine Color Dark Yellow 09/28/22 Unknown Urine Appearance Clear (Clear) 09/28/22 Unknown Urine pH 5.5 (4.5-7.5) 09/28/22 Unknown Ur Specific [place] 1.008 (1.000-1.030) 09/28/22 Unknown Urine Protein Negative (Negative) 09/28/22 Unknown Urine Glucose (UA) Negative (Negative) 09/28/22 Unknown Urine Ketones Negative (Negative) 09/28/22 Unknown Urine Nitrite Negative (Negative) 09/28/22 Unknown Ur Leukocyte Esterase Negative (Negative) 09/28/22 Unknown
--- NOTE | 2022-09-29 08:56 | Gastrointestinal Consultation ---
Date of Consultation September 29, 2022 Assessment & Plan (1) Choledocholithiasis: 56 year old male admitted w/ pain, food aversion, nausea/vomiting, obstructive jaundice and imaging showing cholelithiasis and choledocholithiasis with evidence of acute cholecystitis NPO ERCP today Agree with general surgery evaluation Antiemetics PRN Analgesia PRN May continue ABX We appreciate assistance in the management of any serological abnormality and corrections to include: hemoglobin >7, INR <2, platelets >50,000, potassium levels >3.5 but <5.3, and sodium levels within 5 points of the reference range prior to endoscopic evaluation. Thank you for allowing us to participate in the care of this patient. Please call with any acute changes, questions or concerns. Please see addendum below with additional recommendation from my supervising physician. Supervising Physician Co-Signing Physician Notes Attending attestation I have seen, examined this patient, and agree with the findings and above by our mid-level provider OSIRIS Leos, with the following additions: Doing well, plan for ERCP today History of Present Illness Reason for Consultation: ERCP Requesting Physician: Damien Attending Physician: Isaiah Quezada MD History of Present Illness 56 year old male without PMH who is admitted through the ED with jaundice - GI asked to arrange ERCP. Pt was seen and evaluated, chart reviewed. He endorses some GI distress since . Right sided abd pain, food aversion, nausea/vomiting, burping and belching. He related this to his history of GERD, however, grew concerned when he noted dark urine and light stools. This prompted ED evaluation. Denies weight loss. Denies new medications. Drinks ETOH on weekends, about 8 beers during use. No WBC elevation Tbili 5.6 AST 118 ALK 290 ALKP 246 Lipase 33 MRCP 2022: Cholelithiasis and choledocholithiasis with evidence of acute cholecystitis.There is mild intrahepatic biliary ductal dilatation. Inflammation around the proximal common bile duct likely represents cholangitis. Additional findings as above. CTAP 2022: Diminutive gallbladder with mild wall thickening may represent gallbladder contraction but can also be seen in chronic cholecystitis. There is prominence of the common bile duct with a radiodensity in the distal duct. Choledocholithiasis cannot be excluded. Allergies Allergy/AdvReac Type Severity Reaction Status Date / Time No Known Allergies Allergy Verified 06/09/22 16:09 Home Medications Medication Instructions Recorded Confirmed Type azelastine 137 mcg (0.1 %) nasal 2 spray intranasal BID #90 mL 05/15/22 09/28/22 Rx spray aerosol pantoprazole 40 mg tablet,delayed 40 mg PO QAM #90 tabs 05/15/22 09/28/22 Rx release (Protonix) mupirocin 2 % topical ointment 1 applic topical BID PRN Other 09/28/22 09/28/22 History Patient History Medical History Adenomatous polyps hx GERD (gastroesophageal reflux disease) History of COVID-19 2020, fatigue>resolved. Hx of allergic rhinitis Right knee pain Surgical History History of arthroscopy of right knee Benjamin subtotal lateral meniscectomy, partial medial, chondroplasty History of colonoscopy History of esophagogastroduodenoscopy (EGD) History of foot surgery LEFT Family History Grandfather (Paternal) , age 74 Prostate cancer Grandmother (Maternal) Diabetes Denies family history of Ovarian cancer Alzheimer disease Bipolar disorder Dementia Depression Heart disease Myocardial infarction Breast cancer Lung cancer COPD (chronic obstructive pulmonary disease) Colorectal cancer Hypertension Colonic polyp Stroke Asthma Social History Smoking Status: Never smoker Cigarettes Per Day: "just occasional"; Second Hand Exposure: No; Do You Dip or Chew Tobacco: Yes (1 can a day); Hx Alcohol Use: Yes Alcohol type: beer Alcohol Intake Frequency: 2-3 x/Week Hx Substance Use: No Preferred Language: Kyrgyz Communication Ability: Effective Visual Impairment: No Limitations Hearing Ability: Normal Dress Operator Required: No Beliefs That Will Affect Care: None marital status: Current Living Situation: Spouse Current Living Situation Comment: [employer]EP SON current occupational status: employed 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[employer] How many Children do You have: 1 Other Information That Helps Us Care for You: No Feels Safe at Home: Yes Safety Concerns: Feels Safe At This Time Childhood Exposure to Second-Hand Smoke: Yes Dental Care, Regularly: No Seatbelt Use: never Sunscreen Use: Yes (BEACH) Assistive Devices: None Review of Systems Review of Systems: All systems reviewed & are unremarkable except as noted in HPI & below Physical Exam Constitutional: WD/WN, vitals as above Respiratory: normal respiratory effort, lungs clear to auscultation Cardiovascular: Rate/Rhythm: regular rate and regular rhythm Gastrointestinal (Abdomen): normal bowel sounds, soft, nontender, no hepatosplenomegaly Skin: no rashes, warm and dry + jaundice Results & Data Vital Signs (Past 12 Hours) Vital Signs Temp Pulse Resp BP Pulse Ox O2 Del Method 09/29/22 07:58 36.6 C 77 18 160/86 H 92 Room Air 09/28/22 23:30 Room Air 09/28/22 23:09 36.6 C 63 15 133/82 95 Room Air Laboratory Results 09/29/22 09/29/22 09/29/22 Range/Units 06:37 06:37 06:37 WBC 4.96 (4.8-10.8) K/ul RBC 4.96 (4.70-6.10) M/uL Hgb 15.0 (14.0-18.0) g/dl Hct 42.7 (42.0-52.0) % MCV 86.1 (80.0-100.0) fL MCH 30.2 (25.0-34.0) pg MCHC 35.1 (32.0-36.0) g/dL RDW Std Deviation 43.2 (36.4-46.3) fL RDW Coeff of Mayela 13.8 (11.5-14.5) % Plt Count 216 (130-400) K/uL MPV 8.8 L (9.4-12.4) fL Immature Gran % (Auto) 1.4 % Neut % (Auto) 61.9 % Lymph % (Auto) 17.9 % Dukes % (Auto) 9.3 % Eos % (Auto) 8.1 % Baso % (Auto) 1.4 % Neut # (Auto) 3.07 (1.40-6.50) K/uL Lymph # (Auto) 0.89 L (1.2-3.4) K/uL Dukes # (Auto) 0.46 (0.11-0.59) K/uL Eos # (Auto) 0.40 (0-0.50) K/uL Baso # (Auto) 0.07 (0-0.2) K/uL Immature Gran # (Auto) 0.07 (0.01-0.20) K/uL PT 10.1 (9.0-12.0) Seconds INR 0.9 (0.9-1.1) Sodium 137 (136-145) mmol/L Potassium 4.0 (3.5-5.1) mmol/L Chloride 104 (98-107) mmol/L Carbon Dioxide 23 (21-32) mmol/L Anion Gap 10 (3-11) BUN 9 (6-23) mg/dl Creatinine 1.01 (0.6-1.4) mg/dl Est Cr Clr Drug Dosing 98.6 ml/min Est GFR ( Amer) 96.6 ml/min Est GFR (Non-Af Amer) 83.3 ml/min BUN/Creatinine Ratio 8.9 L (10-20) Glucose 86 (70-99(Fasting)) mg/dl Lactate (0.4-2.0) mmol/L Calcium 9.0 (8.6-10.3) mg/dl Total Bilirubin 5.6 H (0.2-1.0) mg/dl Direct Bilirubin 3.1 H (0-0.2) mg/dl AST 118 H (13-39) U/L ALT 290 H (7-52) U/L Alkaline Phosphatase 246 H (34-104) U/L Total Protein 6.5 (6.0-8.3) gm/dl Albumin 3.7 (3.4-5.0) gm/dl Globulin (2.5-4.0) gm/dl Albumin/Globulin Ratio (0.9-2) Lipase (11-82) U/L Urine Color Urine Appearance (Clear) Urine pH (4.5-7.5) Ur Specific [place] (1.000-1.030) Urine Protein (Negative) Urine Glucose (UA) (Negative) Urine Ketones (Negative) Urine Blood (Negative) Urine Nitrite (Negative) Urine Bilirubin (Negative) Urine Urobilinogen (Negative) Ur Leukocyte Esterase (Negative) 09/28/22 09/28/22 09/28/22 Range/Units Unknown 12:19 11:44 WBC (4.8-10.8) K/ul RBC (4.70-6.10) M/uL Hgb (14.0-18.0) g/dl Hct (42.0-52.0) % MCV (80.0-100.0) fL MCH (25.0-34.0) pg MCHC (32.0-36.0) g/dL RDW Std Deviation (36.4-46.3) fL RDW Coeff of Mayela (11.5-14.5) % Plt Count (130-400) K/uL MPV (9.4-12.4) fL Immature Gran % (Auto) % Neut % (Auto) % Lymph % (Auto) % Dukes % (Auto) % Eos % (Auto) % Baso % (Auto) % Neut # (Auto) (1.40-6.50) K/uL Lymph # (Auto) (1.2-3.4) K/uL Dukes # (Auto) (0.11-0.59) K/uL Eos # (Auto) (0-0.50) K/uL Baso # (Auto) (0-0.2) K/uL Immature Gran # (Auto) (0.01-0.20) K/uL PT (9.0-12.0) Seconds INR (0.9-1.1) Sodium 134 L (136-145) mmol/L Potassium 4.2 (3.5-5.1) mmol/L Chloride 102 (98-107) mmol/L Carbon Dioxide 23 (21-32) mmol/L Anion Gap 9 (3-11) BUN 11 (6-23) mg/dl Creatinine 1.05 (0.6-1.4) mg/dl Est Cr Clr Drug Dosing 82.1 ml/min Est GFR ( Amer) 92.2 ml/min Est GFR (Non-Af Amer) 79.5 ml/min BUN/Creatinine Ratio 10.5 (10-20) Glucose 113 H (70-99(Fasting)) mg/dl Lactate 1.1 (0.4-2.0) mmol/L Calcium 9.6 (8.6-10.3) mg/dl Total Bilirubin 6.4 H (0.2-1.0) mg/dl Direct Bilirubin (0-0.2) mg/dl AST 128 H (13-39) U/L ALT 346 H (7-52) U/L Alkaline Phosphatase 289 H (34-104) U/L Total Protein 7.6 (6.0-8.3) gm/dl Albumin 4.4 (3.4-5.0) gm/dl Globulin 3.2 (2.5-4.0) gm/dl Albumin/Globulin Ratio 1.4 (0.9-2) Lipase 33 (11-82) U/L Urine Color Dark Yellow Urine Appearance Clear (Clear) Urine pH 5.5 (4.5-7.5) Ur Specific [place] 1.008 (1.000-1.030) Urine Protein Negative (Negative) Urine Glucose (UA) Negative (Negative) Urine Ketones Negative (Negative) Urine Blood Negative (Negative) Urine Nitrite Negative (Negative) Urine Bilirubin 1+ H (Negative) Urine Urobilinogen Negative (Negative) Ur Leukocyte Esterase Negative (Negative) 09/28/22 Range/Units 11:44 WBC 7.31 (4.8-10.8) K/ul RBC 5.28 (4.70-6.10) M/uL Hgb 16.3 (14.0-18.0) g/dl Hct 45.4 (42.0-52.0) % MCV 86.0 (80.0-100.0) fL MCH 30.9 (25.0-34.0) pg MCHC 35.9 (32.0-36.0) g/dL RDW Std Deviation 43.0 (36.4-46.3) fL RDW Coeff of Mayela 13.8 (11.5-14.5) % Plt Count 238 (130-400) K/uL MPV 9.0 L (9.4-12.4) fL Immature Gran % (Auto) 1.0 % Neut % (Auto) 64.1 % Lymph % (Auto) 19.6 % Dukes % (Auto) 7.8 % Eos % (Auto) 6.3 % Baso % (Auto) 1.2 % Neut # (Auto) 4.69 (1.40-6.50) K/uL Lymph # (Auto) 1.43 (1.2-3.4) K/uL Dukes # (Auto) 0.57 (0.11-0.59) K/uL Eos # (Auto) 0.46 (0-0.50) K/uL Baso # (Auto) 0.09 (0-0.2) K/uL Immature Gran # (Auto) 0.07 (0.01-0.20) K/uL PT (9.0-12.0) Seconds INR (0.9-1.1) Sodium (136-145) mmol/L Potassium (3.5-5.1) mmol/L Chloride (98-107) mmol/L Carbon Dioxide (21-32) mmol/L Anion Gap (3-11) BUN (6-23) mg/dl Creatinine (0.6-1.4) mg/dl Est Cr Clr Drug Dosing ml/min Est GFR ( Amer) ml/min Est GFR (Non-Af Amer) ml/min BUN/Creatinine Ratio (10-20) Glucose (70-99(Fasting)) mg/dl Lactate (0.4-2.0) mmol/L Calcium (8.6-10.3) mg/dl Total Bilirubin (0.2-1.0) mg/dl Direct Bilirubin (0-0.2) mg/dl AST (13-39) U/L ALT (7-52) U/L Alkaline Phosphatase (34-104) U/L Total Protein (6.0-8.3) gm/dl Albumin (3.4-5.0) gm/dl Globulin (2.5-4.0) gm/dl Albumin/Globulin Ratio (0.9-2) Lipase (11-82) U/L Urine Color Urine Appearance (Clear) Urine pH (4.5-7.5) Ur Specific [place] (1.000-1.030) Urine Protein (Negative) Urine Glucose (UA) (Negative) Urine Ketones (Negative) Urine Blood (Negative) Urine Nitrite (Negative) Urine Bilirubin (Negative) Urine Urobilinogen (Negative) Ur Leukocyte Esterase (Negative)
[2022-09-29] MEDS: PANTOprazole 40 MG in SYRINGE 0 ML IV SCH (11:44)
--- NOTE | 2022-09-29 12:41 | Surgery Consultation ---
Date of Consultation September 29, 2022 Assessment & Plan (1) Abdominal pain, acute, right upper quadrant: (2) Acute cholecystitis: (3) Choledocholithiasis: (4) Transaminitis: Plan 56 year-old male with chronic intermittent history of RUQ pain after eating presented to ED with increasing RUQ abdominal pain, dark urine, and generalized itching. Found to have elevated t. bili of 5.6 and elevated LFTs. MRCP showing acute calculous cholecystitis with choledocholithiasis and possible cholangitis. Plan: Going for ERCP today Discussed with patient indication for cholecystectomy given biliary obstruction as well as his chronic biliary colic issues. Will await results of ERCP today and determine timing of cholecystectomy. Discussed usually cholecystectomy is performed during same admission prior to discharge. Briefly discussed laparoscopic cholecystectomy and expected hospital stay and recovery time. Keep npo for ERCP continue IV abx continue medical management ERCP results reviewed, choledocholithiasis found, removed and biliary stent placed clear liquids npo after midnight continue IV abx will tentatively plan for lap lionel tomorrow afternoon with Dr. Cage repeat am labs Discussed with Dr. Cage who agrees with above. History of Present Illness Reason for Consultation: Choledocholithiasis with cholecystitis Requesting Physician: Saleem Pagan MD Attending Physician: Isaiah Quezada MD History of Present Illness Tab is a 56 year-old male with history of GERD, right knee DJD, sciatica who presented to ED with increasing RUQ abdominal pain with associated generalized itching and dark urine that started last Wednesday. States he has been having intermittent RUQ pain with eating for years but attributed to his GERD. States he noticed dark urine last Wednesday and then generalized itching and presented to ED. No significant fevers or chills but felt feverish and generally not well. ER work-up included labs which showed no leukocytosis however t. bili elevated at 5.6 , LFTS elevated and CT scan of abdomen and pelvis showing contracted gallbladder with gallstones and possible distal common bile duct stone. MRCP showing distended gallbladder with wall thickening consistent with acute cholecystitis as well as choledocholithiasis. There is some edema of the CBD concerning for possible cholangitis. Currently states he is feeling better, no significant RUQ pain. Itching has improved. Jaundice still present. RUQ pain after eating certain foods has been intermittent and not severe for years but has noticed increased frequency since August of this year. No prior abdominal surgeries. No blood thinning agents. Allergies Allergy/AdvReac Type Severity Reaction Status Date / Time No Known Allergies Allergy Verified 06/09/22 16:09 Home Medications Medication Instructions Recorded Confirmed Type azelastine 137 mcg (0.1 %) nasal 2 spray intranasal BID #90 mL 05/15/22 09/28/22 Rx spray aerosol pantoprazole 40 mg tablet,delayed 40 mg PO QAM #90 tabs 05/15/22 09/28/22 Rx release (Protonix) mupirocin 2 % topical ointment 1 applic topical BID PRN Other 09/28/22 09/28/22 History Patient History Medical History Adenomatous polyps hx GERD (gastroesophageal reflux disease) History of COVID-19 2019, fatigue>resolved. Hx of allergic rhinitis Right knee pain Surgical History History of arthroscopy of right knee Benjamin subtotal lateral meniscectomy, partial medial, chondroplasty History of colonoscopy History of esophagogastroduodenoscopy (EGD) History of foot surgery LEFT Family History Grandfather (Paternal) , age 74 Prostate cancer Grandmother (Maternal) Diabetes Denies family history of Ovarian cancer Alzheimer disease Bipolar disorder Dementia Depression Heart disease Myocardial infarction Breast cancer Lung cancer COPD (chronic obstructive pulmonary disease) Colorectal cancer Hypertension Colonic polyp Stroke Asthma Social History Smoking Status: Never smoker Cigarettes Per Day: "just occasional"; Second Hand Exposure: No; Do You Dip or Chew Tobacco: Yes (1 can a day); Hx Alcohol Use: Yes Alcohol type: beer Alcohol Intake Frequency: 2-3 x/Week Hx Substance Use: No Preferred Language: French Communication Ability: Effective Visual Impairment: No Limitations Hearing Ability: Normal Customer Experience Retail Clerk Required: No Beliefs That Will Affect Care: None marital status: Current Living Situation: Spouse Current Living Situation Comment: [employer] STEP SON current occupational status: employed 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 How many Children do You have: 1 Other Information That Helps Us Care for You: No Feels Safe at Home: Yes Safety Concerns: Feels Safe At This Time Childhood Exposure to Second-Hand Smoke: Yes Dental Care, Regularly: No Seatbelt Use: never Sunscreen Use: Yes (BEACH) Assistive Devices: None Review of Systems Review of Systems: All systems reviewed & are unremarkable except as noted in HPI & below Physical Exam Constitutional: WD/WN, vitals as above cooperative and comfortable; no acute distress and not ill appearing Respiratory: normal respiratory effort, lungs clear to auscultation Cardiovascular: RRR, no murmur, no edema Gastrointestinal (Abdomen): Inspection/Auscultation: abdomen normal to inspection; abdomen not distended Percussion/Palpation: abdomen soft; abdomen nontender (negative Simms sign), no guarding, abdomen not rigid and abdomen not firm Skin: no rashes, warm and dry + jaundice Psychiatric: A+Ox3, euthymic affect Results & Data Vital Signs (Past 12 Hours) Vital Signs Temp Pulse Resp BP Pulse Ox O2 Del Method 09/29/22 07:58 36.6 C 77 18 160/86 H 92 Room Air Laboratory Results 09/29/22 09/29/22 09/29/22 Range/Units 06:37 06:37 06:37 WBC 4.96 (4.8-10.8) K/ul RBC 4.96 (4.70-6.10) M/uL Hgb 15.0 (14.0-18.0) g/dl Hct 42.7 (42.0-52.0) % MCV 86.1 (80.0-100.0) fL MCH 30.2 (25.0-34.0) pg MCHC 35.1 (32.0-36.0) g/dL RDW Std Deviation 43.2 (36.4-46.3) fL RDW Coeff of Mayela 13.8 (11.5-14.5) % Plt Count 216 (130-400) K/uL MPV 8.8 L (9.4-12.4) fL Immature Gran % (Auto) 1.4 % Neut % (Auto) 61.9 % Lymph % (Auto) 17.9 % [place] % (Auto) 9.3 % Eos % (Auto) 8.1 % Baso % (Auto) 1.4 % Neut # (Auto) 3.07 (1.40-6.50) K/uL Lymph # (Auto) 0.89 L (1.2-3.4) K/uL [place]imes # (Auto) 0.46 (0.11-0.59) K/uL Eos # (Auto) 0.40 (0-0.50) K/uL Baso # (Auto) 0.07 (0-0.2) K/uL Immature Gran # (Auto) 0.07 (0.01-0.20) K/uL PT 10.1 (9.0-12.0) Seconds INR 0.9 (0.9-1.1) Sodium 137 (136-145) mmol/L Potassium 4.0 (3.5-5.1) mmol/L Chloride 104 (98-107) mmol/L Carbon Dioxide 23 (21-32) mmol/L Anion Gap 10 (3-11) BUN 9 (6-23) mg/dl Creatinine 1.01 (0.6-1.4) mg/dl Est Cr Clr Drug Dosing 98.6 ml/min Est GFR ( Amer) 96.6 ml/min Est GFR (Non-Af Amer) 83.3 ml/min BUN/Creatinine Ratio 8.9 L (10-20) Glucose 86 (70-99(Fasting)) mg/dl Calcium 9.0 (8.6-10.3) mg/dl Total Bilirubin 5.6 H (0.2-1.0) mg/dl Direct Bilirubin 3.1 H (0-0.2) mg/dl AST 118 H (13-39) U/L ALT 290 H (7-52) U/L Alkaline Phosphatase 246 H (34-104) U/L Total Protein 6.5 (6.0-8.3) gm/dl Albumin 3.7 (3.4-5.0) gm/dl Urine Color Urine Appearance (Clear) Urine pH (4.5-7.5) Ur Specific [place] (1.000-1.030) Urine Protein (Negative) Urine Glucose (UA) (Negative) Urine Ketones (Negative) Urine Blood (Negative) Urine Nitrite (Negative) Urine Bilirubin (Negative) Urine Urobilinogen (Negative) Ur Leukocyte Esterase (Negative) 09/28/22 Range/Units Unknown WBC (4.8-10.8) K/ul RBC (4.70-6.10) M/uL Hgb (14.0-18.0) g/dl Hct (42.0-52.0) % MCV (80.0-100.0) fL MCH (25.0-34.0) pg MCHC (32.0-36.0) g/dL RDW Std Deviation (36.4-46.3) fL RDW Coeff of Mayela (11.5-14.5) % Plt Count (130-400) K/uL MPV (9.4-12.4) fL Immature Gran % (Auto) % Neut % (Auto) % Lymph % (Auto) % [place] % (Auto) % Eos % (Auto) % Baso % (Auto) % Neut # (Auto) (1.40-6.50) K/uL Lymph # (Auto) (1.2-3.4) K/uL [place] # (Auto) (0.11-0.59) K/uL Eos # (Auto) (0-0.50) K/uL Baso # (Auto) (0-0.2) K/uL Immature Gran # (Auto) (0.01-0.20) K/uL PT (9.0-12.0) Seconds INR (0.9-1.1) Sodium (136-145) mmol/L Potassium (3.5-5.1) mmol/L Chloride (98-107) mmol/L Carbon Dioxide (21-32) mmol/L Anion Gap (3-11) BUN (6-23) mg/dl Creatinine (0.6-1.4) mg/dl Est Cr Clr Drug Dosing ml/min Est GFR ( Amer) ml/min Est GFR (Non-Af Amer) ml/min BUN/Creatinine Ratio (10-20) Glucose (70-99(Fasting)) mg/dl Calcium (8.6-10.3) mg/dl Total Bilirubin (0.2-1.0) mg/dl Direct Bilirubin (0-0.2) mg/dl AST (13-39) U/L ALT (7-52) U/L Alkaline Phosphatase (34-104) U/L Total Protein (6.0-8.3) gm/dl Albumin (3.4-5.0) gm/dl Urine Color Dark Yellow Urine Appearance Clear (Clear) Urine pH 5.5 (4.5-7.5) Ur Specific [place] 1.008 (1.000-1.030) Urine Protein Negative (Negative) Urine Glucose (UA) Negative (Negative) Urine Ketones Negative (Negative) Urine Blood Negative (Negative) Urine Nitrite Negative (Negative) Urine Bilirubin 1+ H (Negative) Urine Urobilinogen Negative (Negative) Ur Leukocyte Esterase Negative (Negative) Diagnostic Findings CT abd pelvis IV con only CLINICAL HISTORY: RUQ abdominal pain; jaundice TECHNIQUE: Helical axial images of the abdomen and pelvis were obtained and displayed. Automated dose lowering techniques and/or adjustment according to patient size were utilized for this exam. This exam was performed with intravenous contrast. CT DOSE: 1510.87 mGy.cm COMPARISON: None available at the time of this dictation. FINDINGS: Lower chest: Bibasilar atelectasis versus scarring is seen. Liver: Unremarkable. No focal lesions are seen. Gallbladder and biliary tree: The gallbladder is diminutive in size and a layering stone is seen. Gallbladder wall measures up to 0.3 cm in diameter. No significant pericholecystic fluid is noted. Intra and extrahepatic bile biliary ductal dilation is seen. A stone is noted in the distal common bile duct. Pancreas: Unremarkable, no focal lesions. Spleen: Unremarkable. Adrenals: Unremarkable. Kidneys and ureters: Unremarkable. Bladder: Limited evaluation due to underdistention. Reproductive organs: Unremarkable. Bowel: Numerous diverticula are seen in the large bowel. The appendix is unremarkable. Lymph nodes Retroperitoneal: Subcentimeter lymph nodes are noted. Pelvic: Unremarkable. Mesenteric: Unremarkable. Peritoneum: Normal. Vessels: Unremarkable. Abdominal wall: Unremarkable. Bones: Degenerative changes in the visualized spine. IMPRESSION: Diminutive gallbladder with mild wall thickening may represent gallbladder contraction but can also be seen in chronic cholecystitis. There is prominence of the common bile duct with a radiodensity in the distal duct. Choledocholithiasis cannot be excluded. MRCP CLINICAL HISTORY: Right upper quadrant abdominal pain. Nausea and vomiting. COMPARISON STUDY: Abdominal CT dated 09/28/2022. TECHNIQUE: Abdominal MRCP is performed utilizing various T2-weighted sequences in the axial and coronal planes. IV contrast was not administered for this examination. Diffusion-weighted imaging was utilized. 3-D reformats are created and assessed. FINDINGS: The gallbladder is partially distended, and there are several gallstones. The gallbladder wall is thickened with pericholecystic inflammation. Findings are consistent with acute cholecystitis. The common bile duct is dilated, measuring up to 8mm diameter. There is infiltration around the proximal common bile duct and intrahepatic hilum. There are at least 2 gallstones within the mid to distal common bile duct measuring up to 6 mm. There may also be a tiny stone at the ampulla. There is mild intrahepatic biliary ductal dilatation. The pancreatic duct is normal in caliber. The unenhanced liver, spleen, adrenal glands, and pancreas are grossly unremarkable. The kidneys are normal in size and without hydronephrosis. The abdominal aorta is normal in course and caliber. There is no evidence of bowel obstruction. No abdominal ascites is seen. There is no pleural effusion. There is no evidence of destructive bony lesion. IMPRESSION: 1. Cholelithiasis and choledocholithiasis with evidence of acute cholecystitis. 2. There is mild intrahepatic biliary ductal dilatation. Inflammation around the proximal common bile duct likely represents cholangitis. 3. Additional findings as above.
[2022-09-29] MEDS ORDERED: PROPOFOL IV EMULSION 10 MG/ML 20 ML VIAL IV ONE (13:36)
[2022-09-29] MEDS ORDERED: MIDAZOLAM HCL 1 MG/ML 2ML VIAL ONE (13:36)
[2022-09-29] MEDS ORDERED: ROCURONIUM BROMIDE 10 MG/ML 5 ML VIAL IV ONE (13:36)
[2022-09-29] MEDS ORDERED: LIDOCAINE 2% 2 ML VIAL/AMP(20MG/ML) INFIL ONE (13:36)
[2022-09-29] MEDS ORDERED: fentaNYL citrate PF 100 MCG/2 ML VIAL ONE (13:37)
[2022-09-29] MEDS ORDERED: ONDANSETRON INJ 2 MG/ML 2 ML VIAL ONE (13:50)
[2022-09-29] MEDS ORDERED: DEXAMETHASONE SOD INJ 4 MG/ML VIAL ONE (13:50)
[2022-09-29] MEDS ORDERED: ATROPINE SULFATE 0.1 MG/ML 10ML SYR IV PRN (13:53)
[2022-09-29] MEDS ORDERED: fentaNYL citrate PF 100 MCG/2 ML VIAL IV PRN (13:53)
[2022-09-29] MEDS ORDERED: ONDANSETRON INJ 2 MG/ML 2 ML VIAL IV PRN (13:53)
[2022-09-29] MEDS ORDERED: ePHEDrine sulfate 50 MG/ML AMP IV PRN (13:53)
--- NOTE | 2022-09-29 14:23 | History & Physical Bridge Note ---
Date of Service September 29, 2022 History & Physical Bridge Note I have examined the patient, reviewed the History & Physical and in the interval since the performance of the History & Physical I have noted the following changes of clinical significance: no changes noted. I saw and evaluated the patient, we discussed the risks of ERCP to include bleeding, infection, perforation, pancreatitis, pain, failed cannulation and need for f/u studies.
[2022-09-29] MEDS ORDERED: SUGAMMADEX SODIUM 200 MG/2 ML VIAL IV ONE (14:58)
--- NOTE | 2022-09-29 15:09 | GI REPORT ---
Patient Name: Tod Estrella Procedure Date: 09/29/2022 1:57 PM Date of : 1965 Admit Type: Inpatient Age: 56 Gender: Male Attending MD: Kendrick Genao DO, Procedure: ERCP Providers: Kendrick Genao DO Referring MD: Pravin Quezada Indications: Abdominal pain of suspected biliary origin, Abnormal MRCP, Biliary dilation on Ultrasound, Jaundice Medicines: General Anesthesia Complications: No immediate complications. Estimated blood loss: Minimal. Estimated Blood Loss: Estimated blood loss was minimal. Procedure: Pre-Anesthesia Assessment: - Prior to the procedure, a History and Physical was performed, and patient medications, allergies and sensitivities were reviewed. The patient's tolerance of previous anesthesia was reviewed. - The risks and benefits of the procedure and the sedation options and risks were discussed with the patient. All questions were answered and informed consent was obtained. - Patient identification and proposed procedure were verified prior to the procedure by the physician, the nurse and the senior courtroom clerk. The procedure was verified in the procedure room. - Pre-procedure physical examination revealed no contraindications to sedation. - ASA Grade Assessment: II - A patient with mild systemic disease. - After reviewing the risks and benefits, the patient was deemed in satisfactory condition to undergo the procedure. - The anesthesia plan was to use general anesthesia. - Immediately prior to administration of medications, the patient was re-assessed for adequacy to receive sedatives. - The heart rate, respiratory rate, oxygen saturations, blood pressure, adequacy of pulmonary ventilation, and response to care were monitored throughout the procedure. - The physical status of the patient was re-assessed after the procedure. After obtaining informed consent, the scope was passed under direct vision. Throughout the procedure, the patient's blood pressure, pulse, and oxygen saturations were monitored continuously. The Duodenoscope was introduced through the mouth, and advanced to the duodenum and used to inject contrast into the bile duct. The ERCP was accomplished without difficulty. The patient tolerated the procedure well. Findings: The business owner/engineer film was normal. The esophagus was successfully intubated under direct vision without detailed examination of the pharynx, larynx, and associated structures, and upper GI tract. The upper GI tract was grossly normal. The major papilla was erythematous. The bile duct was deeply cannulated with the short-nosed traction sphincterotome and guidewire. Contrast was injected. I personally interpreted the bile duct images. Contrast extended to the hepatic ducts. The lower third of the main bile duct and middle third of the main bile duct contained filling defect(s) thought to be a stone. The main bile duct was moderately dilated, with a stone causing an obstruction. The largest diameter was 9 mm. Biliary sphincterotomy was made with a monofilament Fusion OMNI sphincterotome using ERBE electrocautery. There was no post-sphincterotomy bleeding. To discover objects, the biliary tree was swept with an 11.5 mm balloon starting at the bifurcation. Sludge was swept from the duct. Many stones were removed. No stones remained. One 10 Fr by 8 cm biliary stent with a single external flap and a single internal flap was placed 8 cm into the common bile duct. Bile flowed through the stent. The stent was in good position. The endoscope was withdrawn from the patient. Impression: - The major papilla appeared erythematous. - A filling defect consistent with a stone was seen on the cholangiogram. - The entire main bile duct was moderately dilated, with a stone causing an obstruction. - Choledocholithiasis was found. Complete removal was accomplished by biliary sphincterotomy and balloon extraction. - A biliary sphincterotomy was performed. - The biliary tree was swept. - One biliary stent was placed into the common bile duct. Recommendation: - Avoid aspirin and nonsteroidal anti-inflammatory medicines for 1 week. - Clear liquid diet. - Repeat ERCP in 6 -8 weeks to remove stent. Kendrick Genao D.O. Kendrick Genao DO 09/29/2022 3:08:59 PM This report has been signed electronically. Note Initiated On: 09/29/2022 1:57 PM Number of Addenda: 0 I attest to the content of the Intraoperative Record and orders documented therein, exceptions below {[id number]}
--- NOTE | 2022-09-29 15:10 | Post Operative Brief Note ---
Immediate Post Op Note v1 Date of Surgery September 29, 2022 Pre & Post Diagnosis Operation Date: 09/29/22 08:20 Pre-Op Diagnosis: CHOLEDOCHOLITHIASIS I identified the patient and participated in the time-out.: Yes Procedure Operation Date: 09/29/22 08:20 ERCP with biliary sphincterotomy, gallstones extraction and bilary stent placement. Surgeon Kendrick Genao, Element Setter none Estimated Blood Loss 0 Findings Consistent with Post-Op Diagnosis
--- NOTE | 2022-09-29 15:13 | Communication Note ---
Date of Service: September 29, 2022 The patient underwent ERCP this afternoon with a biliary sphincterotomy, gallstone extraction and biliary stent placement. Recomendations: hold NSAIDs for 1 week Continue antibiotic coverage for 10 days may have clear liquids this evening continue IV hydration overnight cholecystectomy per general surgery repeat ERCP in 6 to 8 weeks for biliary stent removal.
--- NOTE | 2022-09-29 15:27 | Anesthesiology Progress Note ---
Date of Service September 29, 2022 Anesthesia Post Procedure Vital Signs Vital Signs: Temp Pulse Pulse Pulse Resp BP BP 09/29/22 15:20 76 22 119/71 09/29/22 15:11 36.7 C 86 20 138/76 09/29/22 13:36 36.6 C 77 18 134/86 09/29/22 07:58 36.6 C 77 18 160/86 H 09/28/22 23:30 09/28/22 23:09 36.6 C 63 15 133/82 09/28/22 17:45 36.6 C 65 16 154/88 H 09/28/22 17:52 36.7 C 82 16 135/79 09/28/22 16:37 65 Pulse Ox O2 Del Method O2 Flow Rate 09/29/22 15:20 96 Room Air 09/29/22 15:11 98 Oxymask 6 09/29/22 13:36 95 Room Air 09/29/22 07:58 92 Room Air 09/28/22 23:30 Room Air 09/28/22 23:09 95 Room Air 09/28/22 17:45 95 Room Air 09/28/22 17:52 98 Room Air 09/28/22 16:37 Transfer of Care Handoff Completed per policy Notes Mental Status: alert / awake / arousable and participated in evaluation Patient Amnestic to Procedure: Yes Nausea / Vomiting: adequately controlled Pain: adequately controlled Airway Patency, RR, SpO2: stable & adequate BP & HR: stable & adequate Hydration State: stable & adequate Anesthetic Complications: no major complications apparent and Pt Satisfied with anesthetic care
--- NOTE | 2022-09-29 15:32 | Anesthesiology Progress Note ---
Date of Service September 29, 2022 Anesthesia Post Procedure Vital Signs Vital Signs: Temp Pulse Pulse Pulse Resp BP BP 09/29/22 15:30 74 18 117/81 09/29/22 15:20 76 22 119/71 09/29/22 15:11 36.7 C 86 20 138/76 09/29/22 13:36 36.6 C 77 18 134/86 09/29/22 07:58 36.6 C 77 18 160/86 H 09/28/22 23:30 09/28/22 23:09 36.6 C 63 15 133/82 09/28/22 17:45 36.6 C 65 16 154/88 H 09/28/22 17:52 36.7 C 82 16 135/79 09/28/22 16:37 65 Pulse Ox O2 Del Method O2 Flow Rate 09/29/22 15:30 96 Room Air 09/29/22 15:20 96 Room Air 09/29/22 15:11 98 Oxymask 6 09/29/22 13:36 95 Room Air 09/29/22 07:58 92 Room Air 09/28/22 23:30 Room Air 09/28/22 23:09 95 Room Air 09/28/22 17:45 95 Room Air 09/28/22 17:52 98 Room Air 09/28/22 16:37 Transfer of Care Handoff Completed per policy Notes Mental Status: alert / awake / arousable and participated in evaluation Patient Amnestic to Procedure: Yes Nausea / Vomiting: adequately controlled Pain: adequately controlled Airway Patency, RR, SpO2: stable & adequate BP & HR: stable & adequate Hydration State: stable & adequate Anesthetic Complications: no major complications apparent and Pt Satisfied with anesthetic care
--- NOTE | 2022-09-29 15:58 | Fluoroscopy Report ---
[place] ERCP biliary ductal CLINICAL HISTORY: EXPLORE DUCTS Choledocholithiasis. COMPARISON STUDY: MRCP 09/28/2022. FLUOROSCOPY TIME: 21 seconds FLUOROSCOPY IMAGES: 7 Ka,r: 6.1 mGy FINDINGS: The ampulla was cannulated and contrast was injected into the common bile duct. A balloon s weep was performed. IMPRESSION: Fluoroscopic assistance as above. ACT 112: Negative or not required by law. Electronically signed by: Oc Gupta M.D. 09/29/2022 3:57 PM
[2022-09-29] MEDS: cefTRIAXone SODIUM 2,000 MG in DEXTROSE 5% 50 ML IV SCH (17:47)
[2022-09-30] MEDS: LACTATED RINGER'S 1,000 ML IV SCH ×4 (01:46→22:38)
[2022-09-30] MEDS: metroNIDAZOLE 500 MG/100 ML BAG IV SCH ×3 (01:46→17:08)
--- NOTE | 2022-09-30 07:39 | Hospitalist Progress Note ---
Date of Service September 30, 2022 Assessment & Plan (1) Choledocholithiasis with acute cholecystitis with obstruction: (2) Transaminitis: (3) Gastroesophageal reflux disease without esophagitis: Plan #Acute cholecystitis with choledocholithiasis and obstruction #Transaminitis - cholangiopanc MRI 09/28 showed evidence of acute cholecystitis with stones in GB + CBD, cholangitis likely - Lipase wnl, WBC wnl, pt afebrile - Bili 6.4, AST 128, ALT 346, bili and alk phosph continuing to downtrend, ALT/AST improved yesterday, now elevated a bit - continue ABs ceftriaxone + metronidazole, will reassess need for ABs after surgery - continue pt NPO - will hold lovenox midnight prior to surgery when surgery scheduled #GERD - Continue pantoprazole 40mg IV daily until procedure over, once off NPO will switch to po Disposition: Plan for discharge tonight or tomorrow a.m. Will see patient in the evening after surgery to reassess. VTE Prophylaxis - Lovenox 40mg SQ daily Diet - NPO Admission and Anticipated Discharge Date Admission Date: September 28, 2022 Supervising Physician Co-Signing Physician Notes Attending attestation Pt seen and examined in concert with Dr. Damon. In agreement with the documented findings as noted in the resident documentation with any exceptions or additions as noted here. Resting in bed. Postoperatively pain well controlled on present regimen without nausea/vomiting. On examination, S1/S2 nl RRR no MCG. CTAB. Abd NT/ND BS+ve Acute cholecystitis w/ choledocholithiasis and transaminitis sp cholecystectomy - trend CMP, CBC daily. Continue IV abx and monitor closely. Advance diet as tolerated. Else see resident documentation as noted. Subjective Pt is a 56 yo male with a past medical history of GERD who presents to the hospital on 09/28/2022 for acute cholecystitis in the setting of cholelithiasis and choledocholithiasis. Pt states that he has been feeling well this morning. No issues with pain and he tolerated having broth last night without nausea or vomiting. He states that he is eager to get his gallbladder out so he can eat. Otherwise, doing well. He states he was told the cholecystectomy would be later today around noon. No questions or concerns at this time. Review of Systems Review of Systems: Constitutional: denies fever, chills, Cardio: denies chest pain, palpitations Resp: denies shortness of breath, cough GI: denies abdominal pain at rest, nausea, vomiting, constipation, diarrhea : denies pain with urination, change in urinary frequency, urine still dark but improving Physical Exam Physical Exam: General:Alert and oriented, no acute distress, HEENT: Normocephalic, moist oral mucosa, no scleral icterus Cardio: Regular rate and rhythm, no murmur, Resp:Lungs clear to auscultation b/l, no wheezes or rhonchi, GI: Soft, nondistended, bowel sounds active, RUQ pain elicited on deep palpation Skin: Warm, pink, dry, not jaundice Psych: Mood-affect congruence. Results & Data Results & Data Vital Signs (Past 12 Hours) Vital Signs Temp Pulse Resp BP Pulse Ox O2 Del Method 09/30/22 06:36 36.3 C L 68 16 137/73 94 Room Air 09/29/22 22:15 36.4 C L 93 H 16 162/94 H 93 Room Air 09/29/22 22:00 Room Air Resident Activity Tracking Resident Involvement: Resident Care Provided Care Provided: Adult Hospital Medicine
[2022-09-30 08:52] LABS: Basophils # (auto) 0.03 K/uL (0-0.2); Basophils % (auto) 0.4 %; Eosinophils # (auto) 0.02 K/uL (0-0.50); Eosinophils % (auto) 0.2 %; Hemoglobin 14.1 g/dl (14.0-18.0); Immature Granulocytes # (auto) 0.07 K/uL (0.01-0.20); Immature Granulocytes % (auto) 0.8 %; Lymphocytes % (auto) 11.8 %; Mean Corpuscular Hemoglobin 30.4 pg (25.0-34.0); Mean Corpuscular Hgb Conc 35.3 g/dL (32.0-36.0); Mean Corpuscular Volume 86.2 fL (80.0-100.0); Mean Platelet Volume 9.1 fL (9.4-12.4); Monocytes # (auto) 0.63 K/uL (0.11-0.59); Monocytes % (auto) 7.4 %; Neutrophils # (auto) 6.71 K/uL (1.40-6.50); Neutrophils % (auto) 79.4 %; Platelet Count 212 K/uL (130-400); RDW Coefficient of Variation 13.9 % (11.5-14.5); RDW Standard Deviation 43.5 fL (36.4-46.3); Red Blood Count 4.64 M/uL (4.70-6.10); White Blood Count 8.46 K/ul (4.8-10.8)
--- NOTE | 2022-09-30 09:10 | Gastroenterology Progress Note ---
Date of Service September 30, 2022 Assessment & Plan (1) Abdominal pain, acute, right upper quadrant: Plan: 56 year old male admitted w/ pain, food aversion, nausea/vomiting, obstructive jaundice and imaging showingcholelithiasis and choledocholithiasis with evidence of acute cholecystitis s/p ERCP for biliary sphincterotomy, gallstone extraction and biliary stent placement. - hold NSAIDs for 1 week - Continue antibiotic coverage for 10 days - cholecystectomy per general surgery - repeat ERCP in 6 to 8 weeks for biliary stent removal - Will sign off Admission and Anticipated Discharge Date Admission Date: September 28, 2022 Subjective Pt was seen and evaluated, chart reviewed. Feeling well s/p ERCP. No new abd p ain, nausea/vomiting. ERCP: biliary sphincterotomy, gallstone extraction and biliary stent placement Review of Systems Review of Systems: All systems reviewed & are unremarkable except as noted in HPI & below Physical Exam Constitutional: WD/WN, vitals as above Respiratory: normal respiratory effort Gastrointestinal (Abdomen): Inspection/Auscultation: normal bowel sounds Percussion/Palpation: + abdomen tender and abdomen soft Skin: no rashes, warm and dry Results & Data Vital Signs (Past 12 Hours) Vital Signs Temp Pulse Resp BP Pulse Ox O2 Del Method 09/30/22 06:36 36.3 C L 68 16 137/73 94 Room Air 09/29/22 22:15 36.4 C L 93 H 16 162/94 H 93 Room Air 09/29/22 22:00 Room Air Laboratory Results 09/30/22 09/30/22 Range/Units 07:59 07:59 WBC 8.46 (4.8-10.8) K/ul RBC 4.64 L (4.70-6.10) M/uL Hgb 14.1 (14.0-18.0) g/dl Hct 40.0 L (42.0-52.0) % MCV 86.2 (80.0-100.0) fL MCH 30.4 (25.0-34.0) pg MCHC 35.3 (32.0-36.0) g/dL RDW Std Deviation 43.5 (36.4-46.3) fL RDW Coeff of Mayela 13.9 (11.5-14.5) % Plt Count 212 (130-400) K/uL MPV 9.1 L (9.4-12.4) fL Immature Gran % (Auto) 0.8 % Neut % (Auto) 79.4 % Lymph % (Auto) 11.8 % Maury % (Auto) 7.4 % Eos % (Auto) 0.2 % Baso % (Auto) 0.4 % Neut # (Auto) 6.71 H (1.40-6.50) K/uL Lymph # (Auto) 1.00 L (1.2-3.4) K/uL Maury # (Auto) 0.63 H (0.11-0.59) K/uL Eos # (Auto) 0.02 (0-0.50) K/uL Baso # (Auto) 0.03 (0-0.2) K/uL Immature Gran # (Auto) 0.07 (0.01-0.20) K/uL Sodium Pending Potassium Pending Chloride Pending Carbon Dioxide Pending Anion Gap Pending BUN Pending Creatinine Pending Est Cr Clr Drug Dosing Pending Est GFR ( Amer) Pending Est GFR (Non-Af Amer) Pending BUN/Creatinine Ratio Pending Glucose Pending Calcium Pending Total Bilirubin Pending AST Pending ALT Pending Alkaline Phosphatase Pending Total Protein Pending Albumin Pending Globulin Pending Albumin/Globulin Ratio Pending
[2022-09-30] MEDS ORDERED: BUPIVACAINE/EPINEPHRINE 0.25% 1:200,000 30 ML VIAL ONE (09:30)
[2022-09-30] MEDS ORDERED: MIDAZOLAM HCL 1 MG/ML 2ML VIAL ONE (09:36)
[2022-09-30] MEDS ORDERED: fentaNYL citrate PF 100 MCG/2 ML VIAL ONE ×3 (09:36→12:06)
[2022-09-30] MEDS ORDERED: PROPOFOL IV EMULSION 10 MG/ML 20 ML VIAL IV ONE (09:44)
[2022-09-30] MEDS ORDERED: LIDOCAINE 2% 2 ML VIAL/AMP(20MG/ML) INFIL ONE (09:44)
[2022-09-30] MEDS ORDERED: ROCURONIUM BROMIDE 10 MG/ML 5 ML VIAL IV ONE (09:44)
[2022-09-30 10:00] LABS: Albumin Level 3.6 gm/dl (3.4-5.0); Bilirubin,Total 4.9 mg/dl (0.2-1.0); Potassium 3.9 mmol/L (3.5-5.1)
[2022-09-30 10:06] LABS: Albumin Globulin Ratio 1.4 (0.9-2); BUN Creatinine Ratio 10.5 (10-20); Creatinine Clr Calc Pharmacy 104.8 ml/min; Est GFR (Non-African American) 89.8 ml/min; Globulin 2.6 gm/dl (2.5-4.0); Total Protein 6.2 gm/dl (6.0-8.3)
--- NOTE | 2022-09-30 10:07 | Anesthesiology Consultation ---
Date of Service September 30, 2022 Assessment & Plan Chart Review Chart Review: Acceptable Risk for Surgery Consults Requested none History Surgery Operation Date: 09/29/22 08:20 Proposed Procedures p Endoscopic Retrograde Cholangiopancreato - Kendrick Genao DO Operation Date: 09/30/22 07:00 Proposed Procedures p Laparoscopic Cholecystectomy - Amor Cage MD Height/Weight Height: 5 ft 10 in Weight: 101.3 kg Allergies Allergy/AdvReac Type Severity Reaction Status Date / Time No Known Allergies Allergy Verified 06/09/22 16:09 Medications Home Medications Medication Instructions Recorded Confirmed Last Taken azelastine 137 mcg (0.1 %) nasal 2 spray intranasal BID #90 mL 05/15/22 09/28/22 09/28/22 spray aerosol pantoprazole 40 mg tablet,delayed 40 mg PO QAM #90 tabs 05/15/22 09/28/22 Unknown release (Protonix) mupirocin 2 % topical ointment 1 applic topical BID PRN Other 09/28/22 09/28/22 Unknown Active Medications Generic Name Dose Route Start Last Admin Trade Name Freq PRN Reason Stop Dose Admin Enoxaparin Sodium 40 mg 09/28/22 21:00 09/28/22 20:45 Enoxaparin Inj 40 Mg/0.4 Ml Syr SQ 10/28/22 20:59 40 mg QPM MICHAEL Administration Lactated Ringer's 1,000 mls @ 125 mls/hr 09/28/22 16:30 09/30/22 09:45 Lr IV 10/28/22 16:29 125 mls/hr .Q8H MICHAEL Administration Ceftriaxone Sodium 2,000 mg/ 70 mls @ 100 mls/hr 09/28/22 18:15 09/29/22 18:30 Dextrose IV 10/08/22 18:14 Infused Q24H MICHAEL Infusion Protocol Metronidazole 500 mg in 100 mls @ 100 mls/hr 09/28/22 18:15 09/30/22 03:22 Flagyl IV 10/08/22 18:14 Infused Q8H MICHAEL Infusion Protocol Pantoprazole Sodium 40 mg/ 10 mls @ 5 mls/min 09/28/22 20:45 09/29/22 11:44 Syringe IV 10/28/22 20:44 5 mls/min DAILY@1100 MICHAEL Administration NPO Date Last Intake of Fluids: 09/29/22 Time Last Intake of Fluids: 23:59 Date Last Intake of Solids: 09/28/22 Time Last Intake of Solids: 08:00 Past Medical History Medical History Adenomatous polyps hx GERD (gastroesophageal reflux disease) History of COVID-19 2020, fatigue>resolved. Hx of allergic rhinitis Right knee pain Past Family History Family History Grandfather (Paternal) , age 74 Prostate cancer Grandmother (Maternal) Diabetes Denies family history of Ovarian cancer Alzheimer disease Bipolar disorder Dementia Depression Heart disease Myocardial infarction Breast cancer Lung cancer COPD (chronic obstructive pulmonary disease) Colorectal cancer Hypertension Colonic polyp Stroke Asthma Past Surgical History Surgical History History of arthroscopy of right knee Benjamin subtotal lateral meniscectomy, partial medial, chondroplasty History of colonoscopy History of esophagogastroduodenoscopy (EGD) History of foot surgery LEFT Social History Smoking Status: Never smoker tobacco type: smokeless tobacco Smoking cigarettes per day: "just occasional" Do You Dip or Chew Tobacco: Yes (1 can a day) Hx Alcohol Use: Yes Alcohol type: beer alcohol intake frequency: a few times a week Hx Substance Use: No substance use type: does not use Physical Exam Vital Signs Last Vital Signs Temp 36.7 C 09/30/22 09:44 Pulse 68 09/30/22 09:44 Resp 20 09/30/22 09:44 BP 162/82 H 09/30/22 09:44 Pulse Ox 96 09/30/22 09:44 O2 Del Method Room Air 09/30/22 09:44 O2 Flow Rate 6 09/29/22 15:11 Testing Laboratory Results 09/30/22 07:59 09/30/22 07:59 PT 10.1 Seconds (9.0-12.0) 09/29/22 06:37 INR 0.9 (0.9-1.1) 09/29/22 06:37 Urine Color Dark Yellow 09/28/22 Unknown Urine Appearance Clear (Clear) 09/28/22 Unknown Urine pH 5.5 (4.5-7.5) 09/28/22 Unknown Ur Specific [place] 1.008 (1.000-1.030) 09/28/22 Unknown Urine Protein Negative (Negative) 09/28/22 Unknown Urine Glucose (UA) Negative (Negative) 09/28/22 Unknown Urine Ketones Negative (Negative) 09/28/22 Unknown Urine Nitrite Negative (Negative) 09/28/22 Unknown Ur Leukocyte Esterase Negative (Negative) 09/28/22 Unknown
[2022-09-30] MEDS ORDERED: fentaNYL citrate PF 100 MCG/2 ML VIAL IV PRN (10:08)
[2022-09-30] MEDS ORDERED: HYDROmorphone INJ 2 MG/ML SYR/VIAL IV PRN (10:08)
[2022-09-30] MEDS ORDERED: ONDANSETRON INJ 2 MG/ML 2 ML VIAL IV PRN (10:08)
[2022-09-30] MEDS ORDERED: ATROPINE SULFATE 0.1 MG/ML 10ML SYR IV PRN (10:08)
[2022-09-30] MEDS ORDERED: ePHEDrine sulfate 50 MG/ML AMP IV PRN (10:08)
[2022-09-30] MEDS ORDERED: PROMETHAZINE HCL 12.5 MG in SODIUM CHLORIDE 0.9% 50 ML IV PRN (10:08)
--- NOTE | 2022-09-30 10:11 | History & Physical Bridge Note ---
Date of Service September 30, 2022 History & Physical Bridge Note I have examined the patient, reviewed the History & Physical and in the interval since the performance of the History & Physical I have noted the following changes of clinical significance: no changes noted
[2022-09-30] MEDS ORDERED: DEXAMETHASONE SOD INJ 4 MG/ML VIAL ONE (10:48)
[2022-09-30] MEDS ORDERED: ceFAZolin 330 MG/ML 1 GM VIAL ONE ×2 (10:53)
[2022-09-30] MEDS ORDERED: ceFAZolin 2000MG 2,000 MG/15 ML SYR IV ONE (11:12)
[2022-09-30] MEDS ORDERED: ONDANSETRON INJ 2 MG/ML 2 ML VIAL ONE (11:55)
--- NOTE | 2022-09-30 12:02 | Post Operative Brief Note ---
Immediate Post Op Note v1 Date of Surgery September 30, 2022 Pre & Post Diagnosis Operation Date: 09/30/22 07:00 Pre-Op Diagnosis: Choledocholithiasis with acute cholecystitis Post-Op Diagnosis: Choledocholithiasis with acute cholecystitis I identified the patient and participated in the time-out.: Yes Procedure Operation Date: 09/30/22 07:00 Actual Procedures p Laparoscopic Cholecystectomy(Not Applicable) - Amor Cage MD Surgeon Amor Cage MD Tangled Yarn Spool Straightener PREM Sage assisted with tissue retraction, camera op, closure Estimated Blood Loss 10 Findings Consistent with Post-Op Diagnosis Drains Vick-Moralez Drain
--- NOTE | 2022-09-30 12:07 | Operative Report ---
Post Operative Report Pre & Post Diagnosis Operation Date: 09/30/22 07:00 Pre-Op Diagnosis: Choledocholithiasis with acute cholecystitis Post-Op Diagnosis: Choledocholithiasis with acute cholecystitis I identified the patient and participated in the time-out.: Yes Procedure Operation Date: 09/30/22 07:00 Actual Procedures p Laparoscopic Cholecystectomy(Not Applicable) - Amor Cage MD Surgeon Amor Cage MD Operations Specialist PREM Sage assisted with tissue retraction, camera op, closure Estimated Blood Loss 10 Findings Consistent with Post-Op Diagnosis Severe acute on chronic cholecystitis with chronic inflammatory change in the triangle and gallbladder fossa Specimens Gallbladder Drains 15 Gu[place]ian round MICHELLE Anesthesia Type General Complications No immediate complications Description of Procedure The patient was taken to the operating room, and placed supine on the operating table. A timeout was performed, perioperative antibiotics were administered, SCD boots were placed. After adequate anesthesia and analgesia was obtained, the abdomen was prepped and draped in the normal sterile fashion. Local anesthetic was injected into and around the proposed incision sites. An incision was made with a 15 blade scalpel in the supraumbilical region and carried down to the level of the fascia. The fascia was grasped with a trach hook, and a varies needle was used to enter the abdominal cavity. The abdomen was insufflated to a pressure of 15 mmHg, and a 11 mm trocar was placed in this location. A 10 mm, 30 degree laparoscope was placed into the abdominal cavity, and the abdomen was surveyed. Two 5 mm trochars were placed along the right costal margin, and one 5 mm trocar was placed in the subxiphoid region under direct visualization. The gallbladder was identified and noted to be contracted and severely scarred from chronic inflammation. It was very difficult to grasp. There was significant amount of omentum attached to the gallbladder. The gallbladder was grasped and retracted cephalad and laterally, and the adhesions of the omentum were taken down with electrocautery and blunt dissection. Dissection began in the triangle with a combination of blunt dissection with the [place] dissector, and judicious use of the hook cautery. The dissection was quite tedious due to the tenacious chronic scarring within the triangle, however after meticulous dissection, the cystic duct and cystic artery were dissected free circumferentially, and a critical view of safety was obtained. There were 2 branches of the cystic artery which were clipped and transected.the cystic duct was quite dilated and had significant scarring around it. The trocar in the subxiphoid region was increased to a 12 mm trocar, and the duct was clipped with 12 mm clips. Please note that the patient had had choledocholithiasis, and had a stent placed yesterday in the common bile duct. The cystic duct was transected. The gallbladder was removed from the gallbladder fossa with the hook cautery. The camera was switched to a 5 mm, the gallbladder was placed in an Endo Catch bag, and removed via the supraumbilical port site. The camera was switched back to the 10 mm camera, and the abdomen was surveyed again. Hemostasis was checked and attended, and was excellent. The abdomen was copiously irrigated and suctioned free. Again hemostasis was checked and was excellent. A 15 Gu[place]ian round MICHELLE drain was placed through the lateral trocar site and was secured with 2-0 nylon suture. The drain was placed in the gallbladder fossa and down into Morison's pouch. All trochars were removed under direct visualization. The abdomen was desufflated. The fascia in the 11 mm port sites was closed with a 0 Vicryl suture. The skin was closed with a running 4-0 Monocryl subcuticular stitch. Dermabond was applied. The patient tolerated the procedure without complication, and was transferred in stable condition to the PACU. All instrument, needle, and sponge counts were correct at the end of the case. My nursing home assistant was necessary throughout the procedure for tissue retraction, possible camera operation, and closure of the wounds. I understand that section 1842(b)(7)(D) of the Social Security act generally prohibits Medicare physician fee schedule payment for the services of assistants at surgery in teaching hospitals when qualified residents are available to furnish such services. I certify that the services for which payment is claimed were medically necessary and that no qualified resident was available to perform the services. I further understand that these services are subject to postpayment review by the Medicare carrier. I attest to the content of the Intraoperative Record and any orders documented therein. Any exceptions are noted below.
[2022-09-30] MEDS ORDERED: SUGAMMADEX SODIUM 200 MG/2 ML VIAL IV ONE (12:11)
--- NOTE | 2022-09-30 12:41 | Anesthesiology Progress Note ---
Date of Service September 30, 2022 Anesthesia Post Procedure Vital Signs Vital Signs: Temp Pulse Pulse Resp BP Pulse Ox O2 Del Method 09/30/22 12:30 81 22 172/94 H 97 Nasal Cannula 09/30/22 12:20 36.3 C L 85 14 155/92 H 98 Oxymask 09/30/22 09:44 36.7 C 68 20 162/82 H 96 Room Air 09/30/22 06:36 36.3 C L 68 16 137/73 94 Room Air 09/29/22 22:15 36.4 C L 93 H 16 162/94 H 93 Room Air 09/29/22 22:00 Room Air 09/29/22 18:15 88 16 129/81 93 Room Air 09/29/22 16:57 36.5 C 82 16 142/83 H 94 Room Air 09/29/22 16:25 36.5 C 72 16 127/77 95 Room Air 09/29/22 15:40 75 16 122/68 99 Room Air 09/29/22 15:30 74 18 117/81 96 Room Air 09/29/22 15:20 76 22 119/71 96 Room Air 09/29/22 15:11 36.7 C 86 20 138/76 98 Oxymask 09/29/22 13:36 36.6 C 77 18 134/86 95 Room Air O2 Flow Rate 09/30/22 12:30 3 09/30/22 12:20 6 09/30/22 09:44 09/30/22 06:36 09/29/22 22:15 09/29/22 22:00 09/29/22 18:15 09/29/22 16:57 09/29/22 16:25 09/29/22 15:40 09/29/22 15:30 09/29/22 15:20 09/29/22 15:11 6 09/29/22 13:36 Pain Intensity Abdomen: Pain Intensity: 4 Transfer of Care Handoff Completed per policy Notes Mental Status: alert / awake / arousable and participated in evaluation Patient Amnestic to Procedure: Yes Nausea / Vomiting: adequately controlled Pain: adequately controlled Airway Patency, RR, SpO2: stable & adequate BP & HR: stable & adequate Hydration State: stable & adequate Anesthetic Complications: no major complications apparent
[2022-09-30] MEDS: PANTOprazole 40 MG in SYRINGE 0 ML IV SCH (13:10)
[2022-09-30] MEDS: cefTRIAXone SODIUM 2,000 MG in DEXTROSE 5% 50 ML IV SCH (17:14)
[2022-09-30] MEDS: oxyCODONE/ACETAMINOPHEN 5mg/325mg TAB PO PRN ×2 (18:34→22:36)
[2022-09-30] MEDS: ENOXAPARIN INJ 40 MG/0.4 ML SYR SQ SCH (20:35)
[2022-10-01] MEDS ORDERED: MELATONIN 3 MG TAB PO STA (00:43)
[2022-10-01] MEDS: metroNIDAZOLE 500 MG/100 ML BAG IV SCH ×2 (01:18→11:16)
[2022-10-01] MEDS: oxyCODONE/ACETAMINOPHEN 5mg/325mg TAB PO PRN ×2 (06:41→11:11)
--- NOTE | 2022-10-01 07:04 | Hospitalist Progress Note ---
Date of Service October 01, 2022 Assessment & Plan (1) Choledocholithiasis with acute cholecystitis with obstruction: (2) Transaminitis: (3) Gastroesophageal reflux disease without esophagitis: Plan #Acute cholecystitis with choledocholithiasis and obstruction #Transaminitis - cholangiopanc MRI 09/28 showed evidence of acute cholecystitis with stones in GB + CBD, cholangitis likely - Lipase wnl - admission Bili 6.4, AST 128, ALT 346, bili and alk phosph continuing to downtrend, - continue ABs ceftriaxone + metronidazole, will reassess need for ABs after surgery - will hold lovenox midnight prior to surgery when surgery scheduled - continue #GERD - Continue pantoprazole 40mg IV daily until procedure over, once off NPO will switch to po Disposition: Plan for discharge tonight or tomorrow a.m. Will see patient in the evening after surgery to reassess. VTE Prophylaxis - Lovenox 40mg SQ daily Diet - NPO Admission and Anticipated Discharge Date Admission Date: September 28, 2022 Subjective Pt is a 56 yo male with a past medical history of GERD who presents to the hospital on 09/28/2022 for acute cholecystitis in the setting of cholelithiasis and choledocholithiasis. Review of Systems Review of Systems: Constitutional: denies fever, chills, Cardio: denies chest pain, palpitations Resp: denies shortness of breath, cough GI: denies abdominal pain at rest, nausea, vomiting, constipation, diarrhea : denies pain with urination, change in urinary frequency, urine still dark but improving Physical Exam Physical Exam: General:Alert and oriented, no acute distress, HEENT: Normocephalic, moist oral mucosa, no scleral icterus Cardio: Regular rate and rhythm, no murmur, Resp:Lungs clear to auscultation b/l, no wheezes or rhonchi, GI: Soft, nondistended, bowel sounds active, RUQ pain elicited on deep palpation Skin: Warm, pink, dry, not jaundice Psych: Mood-affect congruence. Results & Data Results & Data Vital Signs (Past 12 Hours) Vital Signs Temp Pulse Resp BP Pulse Ox O2 Del Method 10/01/22 03:21 36.6 C 66 16 155/104 H 92 Room Air 09/30/22 22:00 36.7 C 92 H 16 133/72 92 Room Air 09/30/22 19:08 36.7 C 88 16 158/89 H 92 Room Air
[2022-10-01 07:40] LABS: Albumin Globulin Ratio 1.5 (0.9-2); Albumin Level 3.7 gm/dl (3.4-5.0); Bilirubin,Total 3.8 mg/dl (0.2-1.0); Calcium 8.9 mg/dl (8.6-10.3); Creatinine Clr Calc Pharmacy 99.5 ml/min; Est GFR (African American) 97.8 ml/min; Est GFR (Non-African American) 84.4 ml/min; Globulin 2.5 gm/dl (2.5-4.0); Potassium 3.9 mmol/L (3.5-5.1); Total Protein 6.2 gm/dl (6.0-8.3)
[2022-10-01] MEDS: LACTATED RINGER'S 1,000 ML IV SCH (09:24)
--- NOTE | 2022-10-01 09:43 | Surgery Progress Note ---
Date of Service October 01, 2022 Assessment & Plan (1) Abdominal pain, acute, right upper quadrant: (2) Acute cholecystitis: (3) Choledocholithiasis: (4) Transaminitis: Plan POD # 1 s/p laparoscopic cholecystectomy POD # 2 ERCP with biliary stent placement -avss - t. bili still elevated at 3.8 but improving LFTS slightly up today - henrietta drain serosanguineous Plan: Doing well from surgical standpoint for discharge continue pain management as needed Continue low fat diet encourage ambulation continue abx per GI recommendations for 10 total days continue medical management discharge instructions reviewed, will need nurse visit Wednesday for henrietta drain removal and 2 week postop visit in surgery office (scheduled and in discharge instructions) Dr. Cage has seen and examined patient, agrees with above. Admission and Anticipated Discharge Date Admission Date: September 28, 2022 Subjective feeling good soreness at incision sites and drain site, controlled with Percocet no n,v, tolerated low fat diet urinating without difficulty no chest pain or shortness of breath still having some itching Physical Exam Constitutional: WD/WN, vitals as above cooperative and comfortable; no acute distress and not ill appearing Respiratory: normal respiratory effort; no respiratory distress Gastrointestinal (Abdomen): Inspection/Auscultation: abdomen normal to inspection, + abdominal surgical incision (clean/dry/intact with dermabond), + abdominal surgical drain present (serosanguineous ) and + Méndez-Walker sign present; abdomen not distended Percussion/Palpation: + abdomen tender (mild at incision sites) and abdomen soft; no guarding and abdomen not rigid Skin: no rashes, warm and dry + jaundice (mild scleral icterus) Psychiatric: A+Ox3, euthymic affect Results & Data Vital Signs (Past 12 Hours) Vital Signs Temp Pulse Pulse Resp BP Pulse Ox O2 Del Method 10/01/22 07:43 36.8 C 65 16 162/91 H 94 Room Air 10/01/22 03:21 36.6 C 66 16 155/104 H 92 Room Air 09/30/22 22:00 36.7 C 92 H 16 133/72 92 Room Air Laboratory Results 10/01/22 09/30/22 Range/Units 06:48 07:59 Sodium 139 137 (136-145) mmol/L Potassium 3.9 3.9 (3.5-5.1) mmol/L Chloride 103 103 (98-107) mmol/L Carbon Dioxide 29 24 (21-32) mmol/L Anion Gap 7 10 (3-11) BUN 11 10 (6-23) mg/dl Creatinine 1.00 0.95 (0.6-1.4) mg/dl Est Cr Clr Drug Dosing 99.5 104.8 ml/min Est GFR ( Amer) 97.8 104.0 ml/min Est GFR (Non-Af Amer) 84.4 89.8 ml/min BUN/Creatinine Ratio 11.0 10.5 (10-20) Glucose 127 H 117 H (70-99(Fasting)) mg/dl Calcium 8.9 9.0 (8.6-10.3) mg/dl Total Bilirubin 3.8 H 4.9 H (0.2-1.0) mg/dl AST 209 H 156 H (13-39) U/L ALT 412 H 321 H (7-52) U/L Alkaline Phosphatase 212 H 239 H (34-104) U/L Total Protein 6.2 6.2 (6.0-8.3) gm/dl Albumin 3.7 3.6 (3.4-5.0) gm/dl Globulin 2.5 2.6 (2.5-4.0) gm/dl Albumin/Globulin Ratio 1.5 1.4 (0.9-2)
[2022-10-01] MEDS: PANTOprazole 40 MG in SYRINGE 0 ML IV SCH (11:16)
[2022-10-01] MEDS ORDERED: AMOXICILLIN/CLAVULANATE 875 MG TAB PO ONE (11:23)
[2022-10-01] MEDS ORDERED: PANTOprazole 40 MG TAB PO SCH (11:30)
--- NOTE | 2022-10-01 12:32 | Discharge Summary ---
Date of Service October 01, 2022 Admission HPI Per Admitting Provider Tod Estrella is a 56 year old male who presents to the ER with 1 week of dark urine, right upper quadrant pain, nausea, pruritus and chills. He reports intermittent right upper quadrant abdominal pain since August which he initially put down to his reflux due to association with eating. On occasion however it could last for an entire day. Not getting more frequent or severe but also not getting better. Taking intermittent Aleve for this which would help. Then for the last week he has noticed dark urine and reduced urination. Last 5 day his skin has become itchy all over. Associated nausea but no vomiting. No change in bowel movements. This morning he started having chills but no objective fever. Today he called his PCP office on insistence from his who advised him to come to the ER. He drinks alcohol usually on Fridays and Saturdays 6-8 beers at a time. No alcohol since Wednesday as he had 3 beers then which made him feel sick. Admission Exam Per Admitting Provider Constitutional: WD/WN, vitals as above Eyes: sclerae not anicteric and normal pupil size ENMT: external ear and nose normal, oropharynx normal Neck: trachea midline, no thyromegaly Respiratory: normal respiratory effort, lungs clear to auscultation Cardiovascular: RRR, no murmur, no edema Gastrointestinal (Abdomen): Inspection/Auscultation: abdomen normal to inspection; abdomen not distended Percussion/Palpation: + abdomen tender (RUQ) and abdomen soft; no guarding and abdomen not rigid Musculoskeletal: no cyanosis or clubbing, extremities motor strength 5/5 Skin: + jaundice Neurologic: moves all extremities and awake; not confused Psychiatric: A+Ox3, euthymic affect Principal Diagnosis Acute cholecystitis with gallstones causing obstruction. Discharge Exam General:Alert and oriented, no acute distress, HEENT: Normocephalic, moist oral mucosa, no scleral icterus Cardio: Regular rate and rhythm, no murmur, Resp:Lungs clear to auscultation b/l, no wheezes or rhonchi, GI: Soft, nondistended, bowel sounds active, RUQ pain elicited on deep palpation Skin: Warm, pink, dry, not jaundice Psych: Mood-affect congruence. Discharge Data Allergies Allergy/AdvReac Type Severity Reaction Status Date / Time No Known Allergies Allergy Verified 06/09/22 16:09 Consultations 09/28/22 16:22 Consult Gastroenterology Routine 09/28/22 16:24 Consult General Surgery Routine 09/28/22 16:33 ED Decision to Admit Stat Procedures Performed Operation Date: 09/30/22 07:00 Actual Procedures p Laparoscopic Cholecystectomy(Not Applicable) - Amor Cage MD Ordered Studies 09/28/22 12:25 CT Abd and Pelvis [CT abd pelvis IV con only] Stat 09/28/22 13:50 MR MRCP Stat 09/29/22 14:00 FL ERCP biliary ductal Routine Hospital Course (1) Choledocholithiasis with acute cholecystitis with obstruction: (2) Transaminitis: (3) Gastroesophageal reflux disease without esophagitis: Plan #Acute cholecystitis with choledocholithiasis and obstruction #Transaminitis - cholangiopanc MRI 09/28 showed evidence of acute cholecystitis with stones in GB + CBD, cholangitis likely - Lipase wnl - admission Bili 6.4, AST 128, ALT 346, bili and alk phosph continuing to downtrend, - transition IV to oral ABs for discharge, - continue oral ABs for the next 8 days for 10 days total #GERD - Continue pantoprazole 40mg IV daily until procedure over, once off NPO will switch to po Disposition: Discharge home today. Total Time Total Time Spent Total Time Spent (In Minutes): As per attending attestation. Discharge Plan Discharge Items Patient Disposition: Home - Self-Care Reason For Visit: CHOLEDOCHOLITHIASIS WITH ACUTE CHOLECYSTITIS Discharge Diagnosis: Acute cholecystitis Activity: Per Instructions section Non-emergency contact: Primary Care Provider, Surgeon and Personalization Specialist Call non-emergency contact if: you have any medication questions, your symptoms worsen, your pain is not controlled, your temperature is above 101.5 and your wound has increased drainage Follow-up/Referrals: Amor Cage MD [Physician] - 10/05/22 11:00 am (This is nurse visit for drain removal) Montana Edmonds MD [Primary Care Provider] - Pilar Sage PA-C [Physician Sulky Driver] - 10/13/22 2:00 pm Diet: Low Fat Addtl Attending Provider Instructions: You were admitted for acute cholecystitis with obstruction secondary to gallstones. Your symptoms have improved and you have tolerated intake after surgery, so we feel it is safe for you to return home. Medications: Your medication list has been reviewed and reconciled upon discharge to ensure accuracy and continuity of care. An updated list of all your medications is included with your hospital discharge paperwork. Please review this list closely, and make note of any changes. We are sending you home with a prescription for an antibiotic called Augmentin. Please take Augmentin (amoxicillin-clavulanic acid) 875mg twice daily for 8 days. Please take this medication with food. If you have any issues filling these prescriptions, please call [phone] and ask to leave a message for Dr. Damon. Take your medications as instructed; do not skip a dose of your medicines. Make sure all of your doctors know every medicine you are taking (including [id number] medicines, vitamins, and supplements). Call your primary care provider before taking any new medicines (including over- the-counter medicines, vitamins, and supplements), because some of these may interact with your current medications, or may make your symptoms worse. Tell your primary care provider if you cannot afford your medications. Activity: You can do normal everyday activities as your body allows. Take rest breaks if you feel tired. Do not overexert. Stop activity if you have pain, shortness of breath or feel dizzy. Follow-up appointments: Make an appointment with your primary care physician within one week of discharge. A copy of this summary will be sent to them. Every time you see your primary care physician, or any other doctor, bring your medication list, a list of questions, and your recent weights. CONTACT YOUR PRIMARY CARE PROVIDER if you experience any of the following: Shortness of breath or difficulty breathing Swelling of your feet, ankles, hands or abdomen Feeling tired with normal activity or experiencing dizziness or fainting Difficulty following your treatment plan, or difficulty taking medications CALL 911 OR GO TO THE EMERGENCY DEPARTMENT if you experience any of the following: Severe abdominal pain or nausea/vomiting Severe chest pain, or chest pain that radiates (moves) to your jaw or arm Sudden, severe shortness of breath or difficulty breathing Thank you for allowing us to participate in your care. Addtl Fixture Relamper Provider Instructions: Post-Surgical ~Discharge Instructions Activity Recommendations: - lifting limitation: (20 pounds for 3 weeks), - exercise/sex/sports limit: (nonstrenuous for 2 weeks), - driving or machine use limit: (none for 1 week or until pain free and no longer taking narcotic pain medication), - Shower/bathe limit: (may shower, no submerging underwater for 2 weeks Diet: - Resume previous diet SPECIAL CARE INSTRUCTIONS: - May shower.. Let water run over area and pat dry. - surgical glue will fall off on its own, do not pick at it. - If you go home with surgical drain, record output and amount. Drain will be removed in office. - Call the surgeon's office with any questions or concerns - - (ex. temperature higher than 101 degrees F, excessive bleeding or pain). MEDICATIONS: - Resume previous medications unless instructed otherwise by your surgeon. - May take extra strength Tylenol as needed for mild to moderate pain -650 mg Tylenol every 6 hours as needed - Avoid NSAIDS (Aspirin, Aleve, Ibuprofen, Motrin) for 7 days - Percocet 1 every 6 hours, as needed for moderate to severe pain - Recommend daily stool softener (Colace) while taking narcotic pain medication to prevent constipation or straining. drink plenty of water daily - Take entire course of antibiotics as prescribed. FOLLOW UP VISIT: - Scheduled for nurse visit at [facility] on 10/05/2022 at 11:00 am for henrietta drain removal - Scheduled for postop visit at [facility] on 10/13/2022 at 2:00 pm with Pilar Sage PA-C Office number Pending Studies at Discharge: Yes (gallbladder pathology, will be reviewed at postop visit) Stand-Alone Forms: [facility], Work/School Release, Smoking Cessation Medications and DC Order Prescriptions: New amoxicillin-pot clavulanate 875-125 mg tablet 1 tab PO BID Qty: 17 0RF oxycodone-acetaminophen 5-325 mg tablet 1 tab PO Q6H PRN (Reason: pain) Qty: 10 0RF Continued pantoprazole [Protonix] 40 mg tablet,delayed release (DR/EC) 40 mg PO QAM Qty: 90 3RF azelastine 137 mcg (0.1 %) aerosol,spray 2 spray intranasal BID Qty: 90 5RF Rx Instructions: administer into each nostril mupirocin 2 % ointment 1 applic topical BID PRN (Reason: Other) Discharge Orders: Discharge Order (Routine); Ordered 10/01/22 Ordered By: Hazel Damon Admission Data Admit Date/Time: 09/28/22 16:27 Attending Provider: Isaiah Quezada Admit Provider: Saleem Pagan Primary Care Provider: Montana Edmonds Other Providers: Kendrick Genao ; Amor Cage ; Saleem Pagan Other Interventions: Discharge Summary Assessment (RN) Last Done: 10/01/22 12:46 Supervising Physician Co-Signing Physician Notes Attending attestation Pt seen and examined in concert with Dr. Damon. In agreement with the documented findings as noted in the resident documentation with any exceptions or additions as noted here. Resting in bed. Postoperative pain well controlled on present regimen without nausea/vomiting. Tolerating POI, passing flatus. Looking forward to [facility] next year. On examination, S1/S2 nl RRR no MCG. CTAB. Abd NT/ND BS+ve Acute cholecystitis w/ choledocholithiasis and transaminitis sp cholecystectomy - Complete 10 day course of abx as noted above. Encourage healthy post-lionel diet Else see resident documentation as noted. Total attending physician time spent with this patient's care on the day of discharge: 20 minutes. Resident Activity Tracking Resident Involvement: Resident Care Provided Care Provided: Adult Hospital Medicine
== END 2022-10-01 15:05 | disposition home or self-care (01) | DRG 419 ==
LOC: ED 10:57 → 3N 16:27 → SUATTDRO 16:27 → 3N 17:52